=== PATIENT | male | born 1935 | race Caucasian/White ===

== ENCOUNTER → 2016-10-24 | Outpatient (CLI) | payer MEDICARE, OTHER ==
[~2016-10-24] MED LIST: /OCUVTA PO; ASPI81TA4 PO; CHON150C PO; CORE25TA PO; DIGO25TA PO; FIBEPOW11 PO; FISH1000 PO; GLUC15002 PO; LIPI10TA PO; LISI5TAB PO; LOPR50TA PO; MULTTAB4 PO; NORC5TAB PO; OMEP20CA3 PO; PRAD150C PO
[2016-10-24 14:59] LABS: INR 2.39
== END ==
LOC: M WUC 13:45
PROVIDERS: ATTEND Physician Assistant
DX: I48.0 Paroxysmal atrial fibrillation (principal)

== ENCOUNTER → 2016-11-24 | Outpatient (CLI) | payer MEDICARE, OTHER ==
[2016-11-24 17:41] LABS: INR 2.35
== END ==
LOC: M WUC 13:29
PROVIDERS: ATTEND Physician Assistant
DX: Z51.81 Encounter for therapeutic drug level monitoring (principal); Z79.01 Long term (current) use of anticoagulants; I48.0 Paroxysmal atrial fibrillation

== ENCOUNTER → 2016-12-23 | Outpatient (CLI) | payer MEDICARE, OTHER ==
[2016-12-23 16:58] LABS: INR 2.14
== END ==
LOC: M WUC 12:51
PROVIDERS: ATTEND Nurse Practitioner Family
DX: I48.0 Paroxysmal atrial fibrillation (principal)

== ENCOUNTER → 2017-01-26 | Outpatient (CLI) | payer MEDICARE, OTHER ==
[2017-01-26 17:47] LABS: INR 2.45
== END ==
LOC: M WUC 14:54
PROVIDERS: ATTEND Physician Assistant
DX: I48.0 Paroxysmal atrial fibrillation (principal)

== ENCOUNTER → 2017-02-02 | Outpatient (CLI) | payer MEDICARE, OTHER ==
[2017-02-02 10:32] LABS: MEAN CORPUSCULAR HEMOGLOBIN 30.9 pg (27.0-33.0); MEAN CORPUSCULAR HGB CONC 31.8 g/dl (32.0-36.5); MEAN CORPUSCULAR VOLUME 97.1 fl (80.0-96.0); RED CELL DISTRIBUTION WIDTH 13.3 % (11.5-14.5); WHITE BLOOD COUNT 6.9 K/mm3 (4.0-10.0)
[2017-02-02 10:44] LABS: ALBUMIN 3.7 GM/DL (3.2-5.2); ALBUMIN/GLOBULIN RATIO 1.12 (1.00-1.93); BILIRUBIN,TOTAL 0.9 MG/DL (0.2-1.0); CALCIUM LEVEL 9.1 MG/DL (8.8-10.2); CREATININE FOR GFR 1.26 MG/DL (0.70-1.30); GLOMERULAR FILTRATION RATE 58.5 (>35); POTASSIUM SERUM 4.6 MEQ/L (3.5-5.1)
== END ==
LOC: M WUC 08:07
PROVIDERS: ATTEND Internal Medicine Cardiovascular Disease
DX: I48.0 Paroxysmal atrial fibrillation (principal); I11.9 Hypertensive heart disease without heart failure; E78.00 Pure hypercholesterolemia, unspecified

== ENCOUNTER → 2017-02-26 | Outpatient (CLI) | payer MEDICARE, OTHER ==
[2017-02-26 18:08] LABS: INR 2.07
== END ==
LOC: M WUC 14:03
PROVIDERS: ATTEND Nurse Practitioner Family
DX: Z51.81 Encounter for therapeutic drug level monitoring (principal); Z79.01 Long term (current) use of anticoagulants; I48.0 Paroxysmal atrial fibrillation

== ENCOUNTER → 2017-03-30 | Outpatient (CLI) | payer MEDICARE, OTHER ==
[2017-03-30 19:31] LABS: INR 2.39
== END ==
LOC: M WUC 12:58
PROVIDERS: ATTEND Nurse Practitioner Family
DX: I48.0 Paroxysmal atrial fibrillation (principal)

== ENCOUNTER → 2017-04-29 | Outpatient (CLI) | payer MEDICARE, OTHER ==
[2017-04-29 18:29] LABS: INR 2.56
== END ==
LOC: M WUC 13:28
PROVIDERS: ATTEND Nurse Practitioner Family
DX: Z51.81 Encounter for therapeutic drug level monitoring (principal); Z79.01 Long term (current) use of anticoagulants; I48.0 Paroxysmal atrial fibrillation

== ENCOUNTER → 2017-06-01 | Outpatient (CLI) | payer MEDICARE, OTHER ==
[2017-06-01 18:05] LABS: INR 2.04
== END ==
LOC: M WUC 13:15
PROVIDERS: ATTEND Nurse Practitioner Family
DX: Z51.81 Encounter for therapeutic drug level monitoring (principal); Z79.01 Long term (current) use of anticoagulants; I48.0 Paroxysmal atrial fibrillation

== ENCOUNTER → 2017-06-24 | Outpatient (CLI) | payer MEDICARE, OTHER ==
[2017-06-24 16:22] LABS: INR 2.26
== END ==
LOC: M WUC 13:32
PROVIDERS: ATTEND Nurse Practitioner Family
DX: I48.0 Paroxysmal atrial fibrillation (principal)

== ENCOUNTER → 2017-07-23 | Outpatient (CLI) | payer MEDICARE, OTHER ==
[2017-07-23 17:55] LABS: INR 2.48
== END ==
LOC: M WUC 12:36
PROVIDERS: ATTEND Physician Assistant
DX: I48.0 Paroxysmal atrial fibrillation (principal)

== ENCOUNTER → 2017-09-22 | Outpatient (CLI) | payer MEDICARE, OTHER ==
[2017-09-22 17:03] LABS: INR 2.34
== END ==
LOC: M WUC 13:26
PROVIDERS: ATTEND Physician Assistant
DX: I48.0 Paroxysmal atrial fibrillation (principal)

== ENCOUNTER → 2017-10-27 | Outpatient (CLI) | payer MEDICARE, OTHER ==
[2017-10-27 18:17] LABS: INR 2.62; PROTHROMBIN TIME 29.1 SECONDS (12.4-14.5)
== END ==
LOC: M WUC 13:28
DX: I48.0 Paroxysmal atrial fibrillation (principal)
CPT/HCPCS: 85610

== ENCOUNTER → 2017-11-26 | Outpatient (CLI) | payer MEDICARE, OTHER ==
[2017-11-26 18:57] LABS: INR 3.09; PROTHROMBIN TIME 33.3 SECONDS (12.4-14.5)
== END ==
LOC: M WUC 13:20
DX: I48.0 Paroxysmal atrial fibrillation (principal)
CPT/HCPCS: 85610

== ENCOUNTER → 2017-12-14 | Outpatient (CLI) | payer MEDICARE, OTHER ==
[2017-12-14 16:37] LABS: INR 2.45; PROTHROMBIN TIME 27.6 SECONDS (12.4-14.5)
== END ==
LOC: M WUC 13:31
DX: I48.0 Paroxysmal atrial fibrillation (principal)
CPT/HCPCS: 85610

== ENCOUNTER → 2017-12-21 | Outpatient (CLI) | payer MEDICARE, OTHER ==
[2017-12-21 14:22] LABS: HEMATOCRIT 44.4 % (42.0-52.0); MEAN CORPUSCULAR HEMOGLOBIN 31.9 pg (27.0-33.0); MEAN CORPUSCULAR HGB CONC 33.8 g/dl (32.0-36.5); MEAN CORPUSCULAR VOLUME 94.5 fl (80.0-96.0); PLATELET COUNT, AUTOMATED 186 10^3/uL (150-450); RED CELL DISTRIBUTION WIDTH 13.6 % (11.5-14.5); WHITE BLOOD COUNT 6.9 10^3/uL (4.0-10.0)
[2017-12-21 15:20] LABS: CHOLESTEROL LEVEL 118 MG/DL (<200); CHOLESTEROL RISK RATIO 1.843 (<5); HDL CHOLESTEROL 64 MG/DL (>40); LDL CHOLESTEROL 41.2 MG/DL (<100); NON-HDL-C 54 MG/DL; TRIGLYCERIDES LEVEL 64 MG/DL (<150)
== END ==
LOC: M WUC 08:48
DX: I48.0 Paroxysmal atrial fibrillation (principal); I25.10 Atherosclerotic heart disease of native coronary artery without angina pectoris
CPT/HCPCS: 80061

== ENCOUNTER → 2018-01-13 | Outpatient (CLI) | payer MEDICARE, OTHER ==
[2018-01-13 16:42] LABS: INR 2.38; PROTHROMBIN TIME 26.9 SECONDS (12.4-14.5)
== END ==
LOC: M WUC 13:21
DX: I48.0 Paroxysmal atrial fibrillation (principal)
CPT/HCPCS: 85610

== ENCOUNTER → 2018-02-16 | Outpatient (CLI) | payer MEDICARE, OTHER ==
[2018-02-16 17:11] LABS: INR 3.29
== END ==
LOC: M WUC 13:21
DX: I48.0 Paroxysmal atrial fibrillation (principal)
CPT/HCPCS: 85610

== ENCOUNTER → 2018-03-17 | Outpatient (REF) | payer MEDICARE, OTHER ==
[2018-03-18 10:34] LABS: INR 2.54; PROTHROMBIN TIME 28.4 SECONDS (12.4-14.5)
== END ==
LOC: M LAB REF 10:09
DX: I48.0 Paroxysmal atrial fibrillation (principal)
CPT/HCPCS: 85610

== ENCOUNTER → 2018-04-14 | Outpatient (CLI) | payer MEDICARE, OTHER ==
[2018-04-14 16:23] LABS: BASO % 0.6 % (0.0-1.0); EOS # 0.2 10^3/uL (0.0-0.50); EOS % 2.8 % (0.0-3.0); IMMATURE GRANULOCYTE % 0.3 % (0-3.0); LYMPH # 2.1 10^3/uL (1.5-4.5); MEAN CORPUSCULAR HEMOGLOBIN 32.2 pg (27.0-33.0); MEAN CORPUSCULAR HGB CONC 34.1 g/dl (32.0-36.5); MEAN CORPUSCULAR VOLUME 94.4 fl (80.0-96.0); MONO # 0.9 10^3/uL (0.0-0.8); MONO % 13.9 % (0.0-5.0); NEUTROPHILS # 3.2 10^3/uL (1.8-7.7); NEUTROPHILS % 49.4 % (36.0-66.0); PLATELET COUNT, AUTOMATED 190 10^3/uL (150-450); RED BLOOD COUNT 4.66 10^6/uL (4.30-6.10); RED CELL DISTRIBUTION WIDTH 13.4 % (11.5-14.5); WHITE BLOOD COUNT 6.5 10^3/uL (4.0-10.0)
[2018-04-14 16:32] LABS: ALBUMIN 3.6 GM/DL (3.2-5.2); ALKALINE PHOSPHATASE 96 U/L (45-117); ALT/SGPT 83 U/L (12-78); ANION GAP 7 MEQ/L (8-16); AST/SGOT 70 U/L (7-37); BILIRUBIN,TOTAL 1.1 MG/DL (0.2-1.0); BLOOD UREA NITROGEN 22 MG/DL (7-18); CALCIUM LEVEL 8.7 MG/DL (8.8-10.2); CARBON DIOXIDE LEVEL 30 MEQ/L (21-32); CHLORIDE LEVEL 106 MEQ/L (98-107); CREATININE FOR GFR 1.15 MG/DL (0.70-1.30); GLOMERULAR FILTRATION RATE > 60.0 (>35); GLUCOSE, FASTING 87 MG/DL (70-100); POTASSIUM SERUM 4.5 MEQ/L (3.5-5.1); SODIUM LEVEL 143 MEQ/L (136-145); TOTAL PROTEIN 7.2 GM/DL (6.4-8.2)
== END ==
LOC: M WUC 13:50
DX: R19.7 Diarrhea, unspecified (principal); I48.0 Paroxysmal atrial fibrillation; Z79.899 Other long term (current) drug therapy
CPT/HCPCS: 80053

== ENCOUNTER → 2018-04-14 | Outpatient (CLI) | payer MEDICARE, OTHER ==
[2018-04-14 16:34] LABS: INR 2.85; PROTHROMBIN TIME 30.6 SECONDS (12.1-14.4)
== END ==
LOC: M WUC 13:32
DX: I48.0 Paroxysmal atrial fibrillation (principal)

== ENCOUNTER → 2018-04-15 | Outpatient (REF) | payer MEDICARE, OTHER | LOC: M LAB REF 12:25 | DX: R19.7 Diarrhea, unspecified (principal) | CPT/HCPCS: 87507 ==

== ENCOUNTER → 2018-05-13 | Outpatient (CLI) | payer MEDICARE, OTHER ==
[2018-05-13 16:40] LABS: INR 3.16; PROTHROMBIN TIME 33.2 SECONDS (12.1-14.4)
== END ==
LOC: M WUC 13:33
DX: I48.0 Paroxysmal atrial fibrillation (principal); Z79.01 Long term (current) use of anticoagulants
CPT/HCPCS: 85610

== ENCOUNTER → 2018-05-27 | Outpatient (CLI) | payer MEDICARE, OTHER ==
[2018-05-27 17:21] LABS: INR 2.35; PROTHROMBIN TIME 26.2 SECONDS (12.1-14.4)
== END ==
LOC: M WUC 13:26
DX: Z51.81 Encounter for therapeutic drug level monitoring (principal); Z79.01 Long term (current) use of anticoagulants; I48.0 Paroxysmal atrial fibrillation
CPT/HCPCS: 85610

== ENCOUNTER → 2018-06-02 | Outpatient (REF) | payer MEDICARE, OTHER ==
[2018-06-02 17:09] LABS: BASO % 0.5 % (0.0-1.0); EOS # 0.2 10^3/uL (0.0-0.50); EOS % 3.1 % (0.0-3.0); HEMATOCRIT 45.6 % (42.0-52.0); IMMATURE GRANULOCYTE % 0.3 % (0-3.0); LYMPH # 2.2 10^3/uL (1.5-4.5); LYMPH % 29.4 % (24.0-44.0); MEAN CORPUSCULAR HEMOGLOBIN 31.8 pg (27.0-33.0); MEAN CORPUSCULAR HGB CONC 32.9 g/dl (32.0-36.5); MEAN CORPUSCULAR VOLUME 96.8 fl (80.0-96.0); MONO # 1.2 10^3/uL (0.0-0.8); MONO % 15.4 % (0.0-5.0); NEUTROPHILS # 3.8 10^3/uL (1.8-7.7); NEUTROPHILS % 51.3 % (36.0-66.0); PLATELET COUNT, AUTOMATED 182 10^3/uL (150-450); RED BLOOD COUNT 4.71 10^6/uL (4.30-6.10); RED CELL DISTRIBUTION WIDTH 13.9 % (11.5-14.5); WHITE BLOOD COUNT 7.5 10^3/uL (4.0-10.0)
[2018-06-02 17:38] LABS: ALBUMIN 3.6 GM/DL (3.2-5.2); ALKALINE PHOSPHATASE 89 U/L (45-117); ALT/SGPT 66 U/L (12-78); ANION GAP 6 MEQ/L (8-16); AST/SGOT 62 U/L (7-37); BILIRUBIN,TOTAL 0.9 MG/DL (0.2-1.0); BLOOD UREA NITROGEN 21 MG/DL (7-18); CALCIUM LEVEL 9.1 MG/DL (8.8-10.2); CARBON DIOXIDE LEVEL 33 MEQ/L (21-32); CHLORIDE LEVEL 104 MEQ/L (98-107); CREATININE FOR GFR 1.17 MG/DL (0.70-1.30); GLOMERULAR FILTRATION RATE > 60.0 (>35); GLUCOSE, FASTING 86 MG/DL (70-100); POTASSIUM SERUM 4.4 MEQ/L (3.5-5.1); SODIUM LEVEL 143 MEQ/L (136-145); TOTAL PROTEIN 7.2 GM/DL (6.4-8.2)
== END ==
LOC: M SFHCCLAY 11:50
DX: K52.9 Noninfective gastroenteritis and colitis, unspecified (principal); K76.89 Other specified diseases of liver
CPT/HCPCS: 80053

== ENCOUNTER → 2018-06-28 | Outpatient (CLI) | payer MEDICARE, OTHER ==
[2018-06-28 17:37] LABS: PROTHROMBIN TIME 28.4 SECONDS (12.1-14.4)
== END ==
LOC: M WUC 13:50
DX: I48.0 Paroxysmal atrial fibrillation (principal)
CPT/HCPCS: 85610

== ENCOUNTER → 2018-07-27 | Outpatient (CLI) | payer MEDICARE, OTHER ==
[2018-07-27 17:29] LABS: INR 3.45; PROTHROMBIN TIME 35.5 SECONDS (12.1-14.4)
== END ==
LOC: M WUC 14:00
DX: Z51.81 Encounter for therapeutic drug level monitoring (principal); Z79.01 Long term (current) use of anticoagulants; I48.0 Paroxysmal atrial fibrillation
CPT/HCPCS: 85610

== ENCOUNTER → 2018-08-11 | Outpatient (CLI) | payer MEDICARE, OTHER ==
[2018-08-11 18:18] LABS: INR 3.85; PROTHROMBIN TIME 38.8 SECONDS (12.1-14.4)
== END ==
LOC: M WUC 13:28
DX: I48.0 Paroxysmal atrial fibrillation (principal); Z79.01 Long term (current) use of anticoagulants
CPT/HCPCS: 85610

== ENCOUNTER → 2018-08-16 | Outpatient (CLI) | payer MEDICARE, OTHER ==
[2018-08-16 16:41] LABS: INR 2.85; PROTHROMBIN TIME 30.5 SECONDS (12.1-14.4)
== END ==
LOC: M WUC 11:33
DX: I48.0 Paroxysmal atrial fibrillation (principal)
CPT/HCPCS: 85610

== ENCOUNTER → 2018-08-23 | Outpatient (CLI) | payer MEDICARE, OTHER ==
[2018-08-23 19:14] LABS: INR 2.39; PROTHROMBIN TIME 26.6 SECONDS (12.1-14.4)
== END ==
LOC: M WUC 13:00
DX: I48.0 Paroxysmal atrial fibrillation (principal); Z51.81 Encounter for therapeutic drug level monitoring; Z79.01 Long term (current) use of anticoagulants
CPT/HCPCS: 85610

== ENCOUNTER → 2018-09-21 | Outpatient (CLI) | payer MEDICARE, OTHER ==
[2018-09-21 17:29] LABS: INR 1.51; PROTHROMBIN TIME 18.4 SECONDS (12.1-14.4)
== END ==
LOC: M WUC 13:17
DX: I48.0 Paroxysmal atrial fibrillation (principal)
CPT/HCPCS: 85610

== ENCOUNTER → 2018-09-29 | Outpatient (CLI) | payer MEDICARE, OTHER ==
[2018-09-29 17:29] LABS: INR 1.29; PROTHROMBIN TIME 16.3 SECONDS (12.1-14.4)
== END ==
LOC: M WUC 13:27
DX: I48.0 Paroxysmal atrial fibrillation (principal)
CPT/HCPCS: 85610

== ENCOUNTER → 2018-10-07 | Outpatient (CLI) | payer MEDICARE, OTHER ==
[2018-10-07 16:53] LABS: INR 1.79; PROTHROMBIN TIME 21.1 SECONDS (12.1-14.4)
== END ==
LOC: M WUC 13:17
PROVIDERS: ATTEND Physician Assistant
DX: I48.0 Paroxysmal atrial fibrillation (principal); Z79.01 Long term (current) use of anticoagulants

== ENCOUNTER → 2018-10-28 | Outpatient (CLI) | payer MEDICARE, OTHER ==
[2018-10-28 16:31] LABS: INR 2.08; PROTHROMBIN TIME 23.8 SECONDS (12.1-14.4)
== END ==
LOC: M WUC 13:25
PROVIDERS: ATTEND Physician Assistant
DX: I48.0 Paroxysmal atrial fibrillation (principal)

== ENCOUNTER → 2018-11-29 | Outpatient (CLI) | payer MEDICARE, OTHER ==
[2018-11-29 18:19] LABS: INR 3.4; PROTHROMBIN TIME 35.1 SECONDS (12.1-14.4)
== END ==
LOC: M WUC 13:31
PROVIDERS: ATTEND Physician Assistant
DX: I48.0 Paroxysmal atrial fibrillation (principal)

== ENCOUNTER → 2018-12-14 | Outpatient (CLI) | payer MEDICARE, OTHER ==
[2018-12-14 17:12] LABS: INR 2.61; PROTHROMBIN TIME 28.5 SECONDS (12.1-14.4)
== END ==
LOC: M WUC 13:27
PROVIDERS: ATTEND Physician Assistant
DX: I48.0 Paroxysmal atrial fibrillation (principal)

== ENCOUNTER → 2019-01-12 | Outpatient (CLI) | payer MEDICARE, OTHER ==
[2019-01-12 16:45] LABS: INR 2.75; PROTHROMBIN TIME 29.7 SECONDS (12.1-14.4)
== END ==
LOC: M WUC 11:23
PROVIDERS: ATTEND Physician Assistant
DX: I48.0 Paroxysmal atrial fibrillation (principal)

== ENCOUNTER → 2019-01-18 | Outpatient (CLI) | payer MEDICARE, BC, OTHER ==
[2019-01-18 17:26] LABS: CLOSTRIDIUM DIFFICILE PCR NEGATIVE (NEGATIVE)
[2019-01-18 17:31] LABS: FREE T4 1.19 NG/DL (0.76-1.46); THYROID STIMULATING HORMONE 2.6 uIU/ML (0.358-3.740)
== END ==
LOC: M WUC 12:24
PROVIDERS: ATTEND Internal Medicine Gastroenterology
DX: R19.4 Change in bowel habit (principal); I48.0 Paroxysmal atrial fibrillation; Z51.81 Encounter for therapeutic drug level monitoring; Z79.01 Long term (current) use of anticoagulants

== ENCOUNTER → 2019-01-18 | Outpatient (CLI) | payer MEDICARE, BC, OTHER ==
[2019-01-18 17:37] LABS: INR 2.28; PROTHROMBIN TIME 25.6 SECONDS (12.1-14.4)
== END ==
LOC: M WUC 12:29
PROVIDERS: ATTEND Physician Assistant
DX: I48.0 Paroxysmal atrial fibrillation (principal); Z51.81 Encounter for therapeutic drug level monitoring; Z79.01 Long term (current) use of anticoagulants

== ENCOUNTER 2019-02-11 08:22 | Day surgery (SDC) | payer MEDICARE, BC, OTHER ==
[~2019-02-11] VITALS: Ht 182.9 cm; Wt 77.3 kg
[~2019-02-11 08:22] MED LIST changes: -/OCUVTA PO; +ASPI81TA85 PO; +ATOR1TAB19 PO; +CARV6.25 PO; +CILO50TA PO; +COLC1TAB14 PO; +DICY1CAP8 PO; +NS 1,000 ML IV ONE; +PRESCAP PO; +PROS2TAB2 PO; +WARF-23 PO
--- NOTE | 2019-02-11 10:33 | ROOR ---
Patient Name: Octavio King Procedure Date: 02/11/2019 9:55 AM Date of : 1935 Age: 83 Room: [facility] Gender: Male Note Status: Finalized Procedure: Colonoscopy Indications: Change in bowel habits, Diarrhea Providers: Leo CARR MD Referring MD: Jigar Loja MD ([place]) Requesting Provider: Medicines: Monitored Anesthesia Care Complications: No immediate complications. Procedure: Pre-Anesthesia Assessment: - The heart rate, respiratory rate, oxygen saturations, blood pressure, adequacy of pulmonary ventilation, and response to care were monitored throughout the procedure. The Colonoscope was introduced through the anus and advanced to 10 cm into the ileum. The colonoscopy was performed without difficulty. The patient tolerated the procedure well. The quality of the bowel preparation was good. Findings: The perianal and digital rectal examinations were normal. Three flat polyps were found in the hepatic flexure and ascending colon. The polyps were 6 to 8 mm in size. These polyps were removed with a cold snare. Resection and retrieval were complete. To prevent bleeding after the polypectomy, four hemostatic clips were successfully placed. There was no bleeding at the end of the procedure. Multiple small and large-mouthed diverticula were found in the sigmoid colon. Internal hemorrhoids were found during retroflexion. The hemorrhoids were medium-sized. The exam was otherwise without abnormality on direct and retroflexion views. Biopsies for histology were taken with a cold forceps for evaluation of microscopic colitis. The terminal ileum appeared normal. Impression: - Three 6 to 8 mm polyps at the hepatic flexure and in the ascending colon, removed with a cold snare. Resected and retrieved. Clips were placed. - Diverticulosis in the sigmoid colon. - Internal hemorrhoids. - The examination was otherwise normal on direct and retroflexion views. - The examined portion of the ileum was normal. - Biopsies were taken with a cold forceps for evaluation of microscopic colitis. Recommendation: - Resume Coumadin (warfarin) at prior dose tomorrow. - Await pathology results. - Telephone endoscopist for pathology results in 2 weeks. - If the pathology report reveals adenomatous tissue, then repeat the colonoscopy for surveillance in 3 years. Leo Carr MD Leo CARR MD 02/11/2019 10:32:46 AM Electronically signed by Leo CARR MD Number of Addenda: 0 Note Initiated On: 02/11/2019 9:55 AM Estimated Blood Loss: Estimated blood loss: none.
[2019-02-11] MEDS ORDERED: LIDOCAINE 2% INJ 100 MG/5 ML SDV (FOR ANES.) As Ordered ONE (10:43)
[2019-02-11] MEDS ORDERED: PROPOFOL 500 MG/50 ML VIAL As Ordered ONE (10:43)
[2019-02-11 10:50] VITALS: BP 121/71
== END 2019-02-11 10:58 | disposition home or self-care (01) ==
LOC: M OPP 08:22
PROVIDERS: ATTEND Internal Medicine Gastroenterology
DX: D12.2 Benign neoplasm of ascending colon (principal); D12.3 Benign neoplasm of transverse colon; K57.30 Diverticulosis of large intestine without perforation or abscess without bleeding; K64.8 Other hemorrhoids; R19.4 Change in bowel habit; R19.7 Diarrhea, unspecified

== ENCOUNTER → 2019-02-14 | Outpatient (CLI) | payer MEDICARE, BC, OTHER ==
[~2019-02-14] MED LIST changes: -NS 1,000 ML IV ONE
[2019-02-14 17:14] LABS: INR 1.44; PROTHROMBIN TIME 17.8 SECONDS (12.1-14.4)
== END ==
LOC: M WUC 13:09
PROVIDERS: ATTEND Physician Assistant
DX: I48.0 Paroxysmal atrial fibrillation (principal); Z79.01 Long term (current) use of anticoagulants

== ENCOUNTER → 2019-03-01 | Outpatient (CLI) | payer MEDICARE, BC, OTHER ==
[2019-03-01 16:58] LABS: INR 3.49; PROTHROMBIN TIME 35.8 SECONDS (12.1-14.4)
== END ==
LOC: M WUC 13:14
PROVIDERS: ATTEND Physician Assistant
DX: I48.0 Paroxysmal atrial fibrillation (principal)

== ENCOUNTER → 2019-03-16 | Outpatient (CLI) | payer MEDICARE, BC, OTHER ==
[2019-03-16 17:57] LABS: INR 2.59; PROTHROMBIN TIME 28.3 SECONDS (12.1-14.4)
== END ==
LOC: M WUC 11:37
PROVIDERS: ATTEND Physician Assistant
DX: I48.0 Paroxysmal atrial fibrillation (principal)

== ENCOUNTER → 2019-04-14 | Outpatient (CLI) | payer MEDICARE, BC, OTHER ==
[2019-04-14 17:00] LABS: INR 2.87
== END ==
LOC: M WUC 13:17
PROVIDERS: ATTEND Physician Assistant
DX: I48.0 Paroxysmal atrial fibrillation (principal)

== ENCOUNTER → 2019-05-02 | Outpatient (REF) | payer MEDICARE, OTHER ==
[~2019-05-02] MED LIST changes: +OMEP20CA4 PO
== END ==
LOC: M SFHCCLAY 13:47
PROVIDERS: ATTEND Family Medicine
DX: N30.00 Acute cystitis without hematuria (principal)

== ENCOUNTER → 2019-05-02 | Outpatient (CLI) | payer MEDICARE, BC, OTHER ==
--- NOTE | 2019-05-02 12:25 | REP ---
Lumbar spine three views AP and lateral projections: Comparison is 10/14/2010. There is scoliosis convex left in the upper lumbar area. This has slightly increased. There is advanced degenerative disc disease at every lumbar level. This is unchanged. Vertebral body heights and alignment are unremarkable and unchanged. There is a left iliac artery vascular Endograft. This is unchanged. There are surgical clips along the left lateral margin of the aorta. These are unchanged. I suspect an abdominal aortic aneurysm. Recommend follow-up abdominal aortic ultrasound for further evaluation. There has been interim left hip arthroplasty. Suspect there is a right hip arthroplasty, also almost entirely excluded at the film margin, unchanged. Electronically Signed by Vini Ramírez MD 05/02/2019 12:17 P
== END ==
LOC: M CLY 11:24
PROVIDERS: ATTEND Family Medicine
DX: M51.36 Other intervertebral disc degeneration, lumbar region (principal); M54.5 Low back pain

== ENCOUNTER → 2019-05-16 | Outpatient (CLI) | payer MEDICARE, OTHER ==
[2019-05-16 15:56] LABS: INR 3.67; PROTHROMBIN TIME 36.5 SECONDS (11.8-14.0)
== END ==
LOC: M WUC 13:51
PROVIDERS: ATTEND Physician Assistant
DX: I48.0 Paroxysmal atrial fibrillation (principal)

== ENCOUNTER → 2019-05-26 | Outpatient (REF) | payer MEDICARE, OTHER | LOC: M SFHCPLAZ 09:54 | PROVIDERS: ATTEND Dermatology | DX: C44.629 Squamous cell carcinoma of skin of left upper limb, including shoulder (principal) ==

== ENCOUNTER → 2019-05-30 | Outpatient (REF) | payer MEDICARE, OTHER ==
[2019-05-30 17:40] LABS: INR 3.81; PROTHROMBIN TIME 37.6 SECONDS (11.8-14.0)
== END ==
LOC: M LAB REF 16:24
PROVIDERS: ATTEND Physician Assistant
DX: I48.0 Paroxysmal atrial fibrillation (principal)

== ENCOUNTER → 2019-06-15 | Outpatient (REF) | payer MEDICARE, OTHER ==
[2019-06-15 11:58] LABS: INR 1.88; PROTHROMBIN TIME 21.4 SECONDS (11.8-14.0)
== END ==
LOC: M LABDRAWC 11:28
PROVIDERS: ATTEND Physician Assistant
DX: I48.0 Paroxysmal atrial fibrillation (principal)

== ENCOUNTER → 2019-06-16 | Outpatient (REF) | payer MEDICARE, BC, OTHER ==
[~2019-06-16] MED LIST changes: +OMEP1CAP73 PO; -OMEP20CA4 PO
== END ==
LOC: M SFHCPLAZ 18:44
PROVIDERS: ATTEND Dermatology
DX: C44.629 Squamous cell carcinoma of skin of left upper limb, including shoulder (principal); L57.0 Actinic keratosis

== ENCOUNTER → 2019-06-30 | Outpatient (REF) | payer MEDICARE, OTHER ==
[~2019-06-30] MED LIST changes: -OMEP1CAP73 PO; +OMEP20CA4 PO
[2019-06-30 18:47] LABS: INR 1.61; PROTHROMBIN TIME 18.9 SECONDS (11.8-14.0)
== END ==
LOC: M LABDRAWC 16:46
PROVIDERS: ATTEND Physician Assistant
DX: I48.0 Paroxysmal atrial fibrillation (principal)

== ENCOUNTER → 2019-07-28 | Outpatient (REF) | payer MEDICARE, OTHER ==
[2019-07-28 12:31] LABS: INR 2.01; PROTHROMBIN TIME 22.5 SECONDS (11.8-14.0)
== END ==
LOC: M LABDRAWC 11:35
PROVIDERS: ATTEND Physician Assistant
DX: I48.0 Paroxysmal atrial fibrillation (principal)

== ENCOUNTER → 2019-08-09 | Outpatient (CLI) | payer MEDICARE, BC ==
--- NOTE | 2019-08-09 11:20 | REP ---
Two-view chest: 08/09/2019. Indication: Arrhythmia. Comparison: 10/08/2016. Findings: The lungs are clear. Left-sided dual lead pacer is noted with the leads intact. There are no pleural effusions. There is no pneumothorax. Postoperative sequelae are present status post median sternotomy. The cardiac silhouette is not enlarged. Impression: Clear lungs. Electronically Signed by David Yung DO 08/09/2019 11:11 A
[2019-08-09 16:54] LABS: HEMATOCRIT 43.2 % (42.0-52.0); HEMOGLOBIN 14.6 g/dl (13.5-17.5); MEAN CORPUSCULAR HEMOGLOBIN 33.2 pg (27.0-33.0); MEAN CORPUSCULAR HGB CONC 33.8 g/dl (32.0-36.5); MEAN CORPUSCULAR VOLUME 98.2 fl (80.0-96.0); PLATELET COUNT, AUTOMATED 177 10^3/uL (150-450); WHITE BLOOD COUNT 7.2 10^3/uL (4.0-10.0)
[2019-08-09 17:11] LABS: ALBUMIN 3.4 GM/DL (3.2-5.2); CALCIUM LEVEL 9.2 MG/DL (8.8-10.2); CREATININE FOR GFR 1.29 MG/DL (0.70-1.30); GLOMERULAR FILTRATION RATE 56.6 (>35); POTASSIUM SERUM 4.3 MEQ/L (3.5-5.1); THYROID STIMULATING HORMONE 4.04 uIU/ML (0.358-3.740); TOTAL PROTEIN 6.6 GM/DL (6.4-8.2)
== END ==
LOC: M CLY 10:28
PROVIDERS: ATTEND Internal Medicine Cardiovascular Disease
DX: I48.0 Paroxysmal atrial fibrillation (principal); I11.9 Hypertensive heart disease without heart failure

== ENCOUNTER → 2019-09-02 | Outpatient (CLI) | payer MEDICARE, BC, OTHER ==
[~2019-09-02] MED LIST changes: +OMEP-172 PO; -OMEP20CA4 PO
--- NOTE | 2019-09-02 15:17 | REP ---
REASON: Chest wall injury. COMPARISON: Chest is 08/09/2019. The accompanying frontal view of the chest is unchanged from the prior exam. Not all of the left inferior ribs were included on all of the oblique views. This limits the exam. There is no acute fracture or destructive osseous lesion. Electronically Signed by Jose A Arriaga DO 09/02/2019 03:29 P
== END ==
LOC: M CLY 13:43
PROVIDERS: ATTEND Family Medicine
DX: S29.9XXA Unspecified injury of thorax, initial encounter (principal); W00.0XXA Fall on same level due to ice and snow, initial encounter; Y92.9 Unspecified place or not applicable
CPT/HCPCS: 71101; G0463

== ENCOUNTER → 2019-09-30 | Outpatient (REF) | payer MEDICARE, OTHER ==
[~2019-09-30] MED LIST changes: -OMEP-172 PO; +OMEP1CAP73 PO
[2019-09-30 16:26] LABS: BASO % 0.6 % (0.0-1.0); EOS # 0.1 10^3/uL (0.0-0.5); EOS % 1.1 % (0.0-3.0); HEMATOCRIT 44.7 % (42.0-52.0); HEMOGLOBIN 14.7 g/dl (13.5-17.5); LYMPH # 1.4 10^3/uL (1.5-5.0); LYMPH % 19.6 % (24.0-44.0); MEAN CORPUSCULAR HEMOGLOBIN 32.5 pg (27.0-33.0); MEAN CORPUSCULAR HGB CONC 32.9 g/dl (32.0-36.5); MEAN CORPUSCULAR VOLUME 98.7 fl (80.0-96.0); MONO # 1.1 10^3/uL (0.0-0.8); MONO % 15.3 % (0.0-5.0); NEUTROPHILS # 4.4 10^3/uL (1.5-8.5); NEUTROPHILS % 62.3 % (36.0-66.0); PLATELET COUNT, AUTOMATED 205 10^3/uL (150-450); RED BLOOD COUNT 4.53 10^6/uL (4.30-6.10)
[2019-09-30 16:28] LABS: APPEARANCE, URINE HAZY (CLEAR); BACTERIA, URINE AUTO NEGATIVE (NEGATIVE); BILIRUBIN, URINE AUTO NEGATIVE (NEGATIVE); BLOOD, URINE BLOOD NEGATIVE (NEGATIVE); COLOR, URINE YELLOW (YELLOW); GLUCOSE, URINE (UA) AUTO NEGATIVE (NEGATIVE); KETONE, URINE AUTO NEGATIVE (NEGATIVE); LEUKOCYTE ESTERASE, URINE AUTO NEGATIVE (NEGATIVE); NITRITE, URINE AUTO NEGATIVE (NEGATIVE); PROTEIN, URINE AUTO 1+ mg/dL (NEGATIVE); RBC, URINE AUTO 1 /HPF (0-3); SPECIFIC GRAVITY URINE AUTO 1.023 (1.002-1.035); SQUAMOUS EPITHELIAL CELL UR AU 0 /HPF (0-6); UROBILINOGEN, URINE AUTO 0.2 mg/dL (0.0-2.0); WBC, URINE AUTO 2 /HPF (0-3)
[2019-09-30 16:42] LABS: ALBUMIN 3.3 GM/DL (3.2-5.2); CALCIUM LEVEL 8.5 MG/DL (8.8-10.2); CREATININE FOR GFR 1.72 MG/DL (0.70-1.30); FOLATE 10.7 NG/ML (>5.4); FREE T4 1.15 NG/DL (0.76-1.46); GLOMERULAR FILTRATION RATE 40.6 (>35); POTASSIUM SERUM 3.8 MEQ/L (3.5-5.1); THYROID STIMULATING HORMONE 6.43 uIU/ML (0.358-3.740); TOTAL PROTEIN 6.9 GM/DL (6.4-8.2)
== END ==
LOC: M SFHCCLAY 09:33
PROVIDERS: ATTEND Family Medicine
DX: R29.898 Other symptoms and signs involving the musculoskeletal system (principal); W19.XXXD Unspecified fall, subsequent encounter; Z79.899 Other long term (current) drug therapy
CPT/HCPCS: 36415; 80053; 81001; 82550; 82607; 82746; 84439; 84443; 85025; G0463

== ENCOUNTER → 2019-10-06 | Outpatient (REF) | payer MEDICARE, OTHER ==
[~2019-10-06] MED LIST changes: +OMEP-172 PO; -OMEP1CAP73 PO
[2019-10-06 11:45] LABS: ALBUMIN 3.5 GM/DL (3.2-5.2); BILIRUBIN,TOTAL 1.1 MG/DL (0.2-1.0); CREATININE FOR GFR 1.5 MG/DL (0.70-1.30); GLOMERULAR FILTRATION RATE 47.5 (>35); TOTAL PROTEIN 6.9 GM/DL (6.4-8.2)
== END ==
LOC: M SFHCCLAY 08:13
PROVIDERS: ATTEND Family Medicine
DX: N28.9 Disorder of kidney and ureter, unspecified (principal)

== ENCOUNTER → 2019-10-07 | Outpatient (CLI) | payer MEDICARE, BC, OTHER ==
--- NOTE | 2019-10-07 14:26 | REP ---
Whole body radionuclide bone scan: History: Pain in the left hip, thigh and low back. Rule out metastasis. Technique: 21.0 mCi technetium 99m MDP is injected and standard bone scan images are acquired. Scintigraphic findings: There are photopenic areas associated with bilateral knee and bilateral hip arthroplasties. There is arthritic uptake in the wrists bilaterally. There is mild degenerative uptake in the lumbar spine along with a levoconvex curvature. There are three linearly opposed foci of increased uptake at the anterior costochondral junction of the left 4th, 5th, and 6th ribs consistent with fractures. Similarly, on the posterior view there are four linearly opposed foci of increased uptake at the posterior costovertebral junctions of the left rib cage involving rib numbers 6, 7, 8, and 9. These are compatible with fractures as well. There is uptake in bilateral kidneys and in the urinary bladder. There is no evidence to suggest skeletal metastatic disease. Impression: Findings consistent with multiple recent rib fractures on the left as above. Some arthritic and degenerative uptake. No evidence to suggest skeletal metastatic disease. Electronically Signed by Tor Lamb MD 10/07/2019 03:16 P
== END ==
LOC: M RAD 08:40
PROVIDERS: ATTEND Physical Medicine & Rehabilitation
DX: M79.652 Pain in left thigh (principal); M25.552 Pain in left hip; M54.5 Low back pain
CPT/HCPCS: 78306; A9503

== ENCOUNTER → 2019-11-16 | Outpatient (REF) | payer MEDICARE, OTHER ==
[~2019-11-16] MED LIST changes: -OMEP-172 PO; +OMEP1CAP73 PO
[2019-11-16 17:19] LABS: PLATELET COUNT, AUTOMATED 196 10^3/uL (150-450)
[2019-11-16 17:29] LABS: INR 1.41
[2019-11-16 17:30] LABS: PARTIAL THROMBOPLASTIN TIME 31.8 SECONDS (25.0-38.4)
[2019-11-16 17:40] LABS: ERYTHROCYTE SEDIMENTATION RATE 5 mm/hr (0-20)
== END ==
LOC: M LABDRAWC 17:10
PROVIDERS: ATTEND Physical Medicine & Rehabilitation
DX: Z01.818 Encounter for other preprocedural examination (principal); Z79.82 Long term (current) use of aspirin; Z79.899 Other long term (current) drug therapy

== ENCOUNTER → 2019-11-29 | Outpatient (REF) | payer MEDICARE, OTHER ==
[2019-11-29 17:06] LABS: HEMATOCRIT 45.8 % (42.0-52.0); HEMOGLOBIN 14.9 g/dl (13.5-17.5); MEAN CORPUSCULAR HGB CONC 32.5 g/dl (32.0-36.5); MEAN CORPUSCULAR VOLUME 101.6 fl (80.0-96.0); PLATELET COUNT, AUTOMATED 213 10^3/uL (150-450); RED BLOOD COUNT 4.51 10^6/uL (4.30-6.10); WHITE BLOOD COUNT 8.1 10^3/uL (4.0-10.0)
[2019-11-29 18:06] LABS: THYROID STIMULATING HORMONE 9.11 uIU/ML (0.358-3.740)
== END ==
LOC: M LABDRAWC 16:09
PROVIDERS: ATTEND Internal Medicine Cardiovascular Disease
DX: I48.0 Paroxysmal atrial fibrillation (principal); E03.9 Hypothyroidism, unspecified; I11.9 Hypertensive heart disease without heart failure; I50.9 Heart failure, unspecified

== ENCOUNTER → 2020-02-07 | Outpatient (REF) | payer MEDICARE, OTHER ==
[2020-02-07 16:43] LABS: ALBUMIN 3.6 GM/DL (3.2-5.2); BILIRUBIN,TOTAL 1.1 MG/DL (0.2-1.0); CALCIUM LEVEL 9.2 MG/DL (8.8-10.2); CREATININE FOR GFR 1.47 MG/DL (0.70-1.30); GLOMERULAR FILTRATION RATE 48.6 (>35); POTASSIUM SERUM 4.2 MEQ/L (3.5-5.1); THYROID STIMULATING HORMONE 5.68 uIU/ML (0.358-3.740); TOTAL PROTEIN 7.1 GM/DL (6.4-8.2)
== END ==
LOC: M LABDRAWC 16:04
PROVIDERS: ATTEND Internal Medicine Cardiovascular Disease
DX: E03.2 Hypothyroidism due to medicaments and other exogenous substances (principal); I25.10 Atherosclerotic heart disease of native coronary artery without angina pectoris

== ENCOUNTER → 2020-03-06 | Outpatient (REF) | payer MEDICARE, OTHER | LOC: M LAB REF 17:20 | PROVIDERS: ATTEND Dermatology | DX: C44.729 Squamous cell carcinoma of skin of left lower limb, including hip (principal); D04.4 Carcinoma in situ of skin of scalp and neck; L57.0 Actinic keratosis ==

== ENCOUNTER → 2020-04-17 | Outpatient (REF) | payer MEDICARE, OTHER | LOC: M LAB REF 17:49 | PROVIDERS: ATTEND Dermatology | DX: C44.42 Squamous cell carcinoma of skin of scalp and neck (principal); L57.0 Actinic keratosis; L57.8 Other skin changes due to chronic exposure to nonionizing radiation; L90.5 Scar conditions and fibrosis of skin ==

== ENCOUNTER → 2020-05-22 | Outpatient (REF) | payer MEDICARE, BC, OTHER ==
[~2020-05-22] MED LIST changes: -ASPI81TA85 PO; +ASPI81TA86 PO
== END ==
LOC: M LAB REF 10:43
PROVIDERS: ATTEND Dermatology
DX: C44.42 Squamous cell carcinoma of skin of scalp and neck (principal); L57.0 Actinic keratosis

== ENCOUNTER → 2020-06-12 | Outpatient (REF) | payer MEDICARE, BC, OTHER | LOC: M LAB REF 09:00 | PROVIDERS: ATTEND Dermatology | DX: C44.42 Squamous cell carcinoma of skin of scalp and neck (principal) ==

== ENCOUNTER → 2020-09-20 | Outpatient (REF) | payer MEDICARE, OTHER | LOC: M LAB REF 17:26 | PROVIDERS: ATTEND Dermatology | DX: L57.0 Actinic keratosis (principal); L57.8 Other skin changes due to chronic exposure to nonionizing radiation ==

== ENCOUNTER → 2020-11-19 | Outpatient (CLI) | payer MEDICARE, BC, OTHER ==
--- NOTE | 2020-11-19 08:34 | REPVR ---
PROCEDURE INFORMATION: Exam: CT Head Without Contrast Exam date and time: 11/19/2020 8:19 AM Age: 85 years old Clinical indication: Dizziness TECHNIQUE: Imaging protocol: Computed tomography of the head without contrast. Radiation optimization: All CT scans at this facility use at least one of these dose optimization techniques: automated exposure control; mA and/or kV adjustment per patient size (includes targeted exams where dose is matched to clinical indication); or iterative reconstruction. COMPARISON: None available. FINDINGS: Brain: There is no acute intracranial hemorrhage or mass effect. Moderate diffuse volume loss is within the range of normal for patient age. There are small vessel ischemic changes within the periventricular and subcortical white matter, but the normal man-white matter delineation is maintained. Chronic lacunar infarcts involve the basal ganglia. Cerebral ventricles: Prominence of the ventricular system is commensurate with volume loss. Bones/joints: Unremarkable. No acute fracture. Paranasal sinuses: Visualized sinuses are unremarkable. No fluid levels. Mastoid air cells: There is fluid opacification of right mastoid air cells and right middle ear cavity. Soft tissues: Unremarkable. IMPRESSION: 1. No acute intracranial hemorrhage or edema. Chronic changes. 2. Opacification of the right middle ear cavity and right mastoid air cells, potentially effusion versus otitis/mastoiditis. Electronically signed by: Rosario Mendoza On 11/19/2020 08:34:14 AM
== END ==
LOC: M RAD 08:11
PROVIDERS: ATTEND Family Medicine
DX: R42 Dizziness and giddiness (principal); H74.91 Unspecified disorder of right middle ear and mastoid

== ENCOUNTER → 2021-04-02 | Outpatient (REF) | payer MEDICARE, OTHER ==
[2021-04-02 13:13] LABS: CALCIUM LEVEL 9.4 MG/DL (8.8-10.2); CHOLESTEROL RISK RATIO 1.928 (<5); CREATININE FOR GFR 1.51 MG/DL (0.70-1.30); FREE T4 1.3 NG/DL (0.76-1.46); THYROID STIMULATING HORMONE 2.11 uIU/ML (0.358-3.740)
== END ==
LOC: M SFHCCLAY 07:03
PROVIDERS: ATTEND Family Medicine
DX: Z00.00 Encounter for general adult medical examination without abnormal findings (principal); E03.9 Hypothyroidism, unspecified; I25.10 Atherosclerotic heart disease of native coronary artery without angina pectoris; I11.9 Hypertensive heart disease without heart failure

== ENCOUNTER → 2021-05-01 | Outpatient (REF) | payer MEDICARE, OTHER ==
[2021-05-01 17:12] LABS: BASO % 0.6 % (0.0-1.0); EOS # 0.1 10^3/uL (0.0-0.5); EOS % 2.1 % (0.0-3.0); HEMATOCRIT 43.1 % (42.0-52.0); HEMOGLOBIN 14.5 g/dl (13.5-17.5); LYMPH # 2.2 10^3/uL (1.5-5.0); LYMPH % 34.2 % (24.0-44.0); MEAN CORPUSCULAR HEMOGLOBIN 32.4 pg (27.0-33.0); MEAN CORPUSCULAR HGB CONC 33.6 g/dl (32.0-36.5); MEAN CORPUSCULAR VOLUME 96.4 fl (80.0-96.0); MONO # 0.9 10^3/uL (0.0-0.8); MONO % 14.1 % (2.0-8.0); NEUTROPHILS # 3.1 10^3/uL (1.5-8.5); NEUTROPHILS % 48.8 % (36.0-66.0); PLATELET COUNT, AUTOMATED 173 10^3/uL (150-450); RED BLOOD COUNT 4.47 10^6/uL (4.30-6.10); WHITE BLOOD COUNT 6.3 10^3/uL (4.0-10.0)
[2021-05-04 15:34] LABS: Lyme Disease IgG/IgM Antibodie <0.91 ISR (0.00-0.90); Lyme Disease IgM Ab Quantitati <0.80 index (0.00-0.79)
== END ==
LOC: M SFHCCLAY 13:42
PROVIDERS: ATTEND Family Medicine
DX: R42 Dizziness and giddiness (principal); R53.83 Other fatigue
CPT/HCPCS: 85025; 86617; G0463

== ENCOUNTER → 2021-05-13 | Outpatient (CLI) | payer MEDICARE, BC, OTHER ==
--- NOTE | 2021-05-13 14:25 | REP ---
INDICATION: RT INGUINAL SWELLING ? HERNIA. COMPARISON: None. TECHNIQUE: Inguinal sonography right-side. FINDINGS: Targeted scanning of the right inguinal region shows no abnormal fluid collection, hernia defect, or mass. Patient is status post right inguinal hernia repair. IMPRESSION: No mass or abnormal fluid collection. No evidence of right inguinal hernia. <Electronically signed by Orlando Lamb > 05/13/21 0610
== END ==
LOC: M RAD 11:35
PROVIDERS: ATTEND Family Medicine
DX: R22.9 Localized swelling, mass and lump, unspecified (principal)

== ENCOUNTER → 2021-05-20 | Outpatient (REF) | payer MEDICARE, BC ==
[~2021-05-20] MED LIST changes: +ASPI81TA26 PO; +CEPH500C PO; +ELIQ5TAB PO; +ENTR1TAB PO; +LEVO50TA5 PO; +OXYC1TAB23 PO; +PRED20TA PO
[2021-05-20 17:42] LABS: HEMATOCRIT 41.2 % (42.0-52.0); HEMOGLOBIN 13.7 g/dl (13.5-17.5); MEAN CORPUSCULAR HEMOGLOBIN 32.6 pg (27.0-33.0); MEAN CORPUSCULAR HGB CONC 33.3 g/dl (32.0-36.5); MEAN CORPUSCULAR VOLUME 98.1 fl (80.0-96.0); PLATELET COUNT, AUTOMATED 174 10^3/uL (150-450); WHITE BLOOD COUNT 11.6 10^3/uL (4.0-10.0)
[2021-05-20 18:14] LABS: ALBUMIN 3.4 GM/DL (3.2-5.2); ALT/SGPT 31 U/L (12-78); BILIRUBIN,TOTAL 1.9 MG/DL (0.2-1.0); BLOOD UREA NITROGEN 20 MG/DL (7-18); CALCIUM LEVEL 8.8 MG/DL (8.8-10.2); CARBON DIOXIDE LEVEL 30 MEQ/L (21-32); CHLORIDE LEVEL 97 MEQ/L (98-107); CREATININE FOR GFR 1.18 MG/DL (0.70-1.30); GLOMERULAR FILTRATION RATE > 60.0 (>35); GLUCOSE, FASTING 114 MG/DL (70-100); NT-PRO BNP 2737 PG/ML (<450); POTASSIUM SERUM 4.2 MEQ/L (3.5-5.1); SODIUM LEVEL 134 MEQ/L (136-145); TOTAL PROTEIN 6.6 GM/DL (6.4-8.2)
== END ==
LOC: M LABDRAWC 15:38
PROVIDERS: ATTEND Internal Medicine Cardiovascular Disease
DX: I48.0 Paroxysmal atrial fibrillation (principal); I50.42 Chronic combined systolic (congestive) and diastolic (congestive) heart failure; I25.10 Atherosclerotic heart disease of native coronary artery without angina pectoris; I11.0 Hypertensive heart disease with heart failure

== ENCOUNTER → 2021-05-20 | Outpatient (CLI) | payer MEDICARE, BC ==
--- NOTE | 2021-05-20 14:46 | REP ---
INDICATION: M25.421, SWELLING OF RIGHT ELBOW COMPARISON: None. TECHNIQUE: Four views right elbow. FINDINGS: There is no evidence of acute fracture, dislocation, or intrinsic bone disease.There is chondrocalcinosis. There are ill-defined periarticular soft tissue calcifications, some of which are appear ligamentous and others tendinous. There is mild to moderate joint effusion. Vascular calcifications are seen in the forearm soft tissues. IMPRESSION: No acute fracture or dislocation. Diffuse chondrocalcinosis, with periarticular ligamentous and tendinous calcifications. Mild to moderate joint effusion. <Electronically signed by Vini Contreras > 05/20/21 0479
--- NOTE | 2021-05-20 14:52 | REP ---
INDICATION: R22.31, LOCALIZED SWELLING ON RIGHT HAND COMPARISON: 04/20/2013. TECHNIQUE: Four views right hand. FINDINGS: There is no evidence of acute fracture, dislocation, or intrinsic bone disease.There is severe radiocarpal joint space narrowing with subchondral sclerosis. There is diffuse chondrocalcinosis of the joints of the wrist. Mild diffuse narrowing is noted of intercarpal joints. There is moderate narrowing with subchondral sclerosis and spurring at the joint between the trapezium and base of 1st metacarpal. There is mild narrowing of the 1st metacarpophalangeal joint. There is severe narrowing of the 2nd metacarpophalangeal joint and moderate narrowing of the 3rd metacarpophalangeal joint, with subchondral sclerosis, mild spurring and periarticular calcifications. There is mild diffuse narrowing of interphalangeal joints with mild scattered spurring. IMPRESSION: No fracture or dislocation. Degenerative changes as above. <Electronically signed by Vini Contreras > 05/20/21 [id number]
== END ==
LOC: M CLY 14:10
PROVIDERS: ATTEND Physician Assistant
DX: M19.041 Primary osteoarthritis, right hand (principal); M11.221 Other chondrocalcinosis, right elbow; M25.421 Effusion, right elbow

== ENCOUNTER 2021-05-22 09:08 | Inpatient (IN) | payer MEDICARE, BC, OTHER ==
[~2021-05-22] VITALS: Ht 182.9 cm; Wt 76.7 kg
[~2021-05-22 09:08] MED LIST changes: -ASPI81TA26 PO; -CEPH500C PO; -ELIQ5TAB PO; -ENTR1TAB PO; -LEVO50TA5 PO; -OXYC1TAB23 PO; -PRED20TA PO
[2021-05-22] MEDS ORDERED: PRED20TA PO (09:31)
[2021-05-22] MEDS ORDERED: CEPH500C PO (09:31)
[2021-05-22] MEDS ORDERED: ELIQ5TAB PO (09:31)
[2021-05-22] MEDS ORDERED: LEVO50TA5 PO (09:31)
[2021-05-22 10:08] LABS: BASO % 0.1 % (0.0-1.0); EOS % 0.1 % (0.0-3.0); HEMATOCRIT 33.7 % (42.0-52.0); LYMPH # 0.9 10^3/uL (1.5-5.0); LYMPH % 7.5 % (24.0-44.0); MEAN CORPUSCULAR HEMOGLOBIN 32.8 pg (27.0-33.0); MEAN CORPUSCULAR HGB CONC 33.8 g/dl (32.0-36.5); MEAN CORPUSCULAR VOLUME 96.8 fl (80.0-96.0); MONO % 8.4 % (2.0-8.0); NEUTROPHILS # 10.2 10^3/uL (1.5-8.5); NEUTROPHILS % 83.4 % (36.0-66.0); PLATELET COUNT, AUTOMATED 174 10^3/uL (150-450); RED BLOOD COUNT 3.48 10^6/uL (4.30-6.10); WHITE BLOOD COUNT 12.2 10^3/uL (4.0-10.0)
[2021-05-22 10:11] LABS: HEMOGLOBIN 11.4 g/dl (13.5-17.5)
[2021-05-22] MEDS ORDERED: NS 500 ML IV ONE (10:20)
--- NOTE | 2021-05-22 10:22 | REP ---
INDICATION: CHEST PAIN. COMPARISON: 08/09/2019. TECHNIQUE: Single portable AP view of the chest was performed. FINDINGS: There is no acute infiltrate or pulmonary edema. Lungs are clear. The heart is not significantly enlarged. There is calcification and tortuosity of the thoracic aorta. The mediastinal silhouette is unchanged. Left pacemaker is again noted as well as multiple sternal wires mediastinal clips. The visualized osseous structures are intact. IMPRESSION: No acute pulmonary disease. <Electronically signed by Vini Contreras > 05/22/21 1018
--- NOTE | 2021-05-22 10:29 | REP ---
INDICATION: dizzy post fall. COMPARISON: 11/19/2020. TECHNIQUE: CT brain performed in the axial plane. Coronal reconstruction images are performed. FINDINGS: There is moderate atrophy. There are chronic periventricular small vessel ischemic changes appearing similar to the prior study. There is no midline shift or mass effect. There is no acute intracranial hemorrhage or extra-axial fluid collection. There is a soft tissue hematoma involving the left parietal region, with skin chao noted as well. No skull fracture is seen. There are vascular calcifications in the carotid siphons. Once again there is opacification of the right mastoid air cells, as seen on prior study. IMPRESSION: No acute intracranial hemorrhage or skull fracture. Soft tissue hematoma left parietal calvarium. Stable chronic findings. <Electronically signed by Vini Contreras > 05/22/21 102
[2021-05-22 10:42] LABS: ALBUMIN 2.8 GM/DL (3.2-5.2); ALT/SGPT 31 U/L (12-78); BILIRUBIN,DIRECT 0.4 MG/DL (0.0-0.2); BILIRUBIN,TOTAL 0.9 MG/DL (0.2-1.0); BLOOD UREA NITROGEN 26 MG/DL (7-18); CALCIUM LEVEL 8.2 MG/DL (8.8-10.2); CARBON DIOXIDE LEVEL 29 MEQ/L (21-32); CHLORIDE LEVEL 102 MEQ/L (98-107); CK-MB VALUE MASS 2.4 NG/ML (<3.6); CPK CREATINE PHOSPHOKINASE 124 U/L (39-308); CREATININE FOR GFR 1.22 MG/DL (0.70-1.30); FREE T4 1.19 NG/DL (0.76-1.46); GLOMERULAR FILTRATION RATE > 60.0 (>35); GLUCOSE, FASTING 121 MG/DL (70-100); LIPASE 91 U/L (73-393); MAGNESIUM LEVEL 2.2 MG/DL (1.8-2.4); MB/CK RELATIVE INDEX 1.94 (< OR =4); NT-PRO BNP 1450 PG/ML (<450); POTASSIUM SERUM 3.9 MEQ/L (3.5-5.1); SODIUM LEVEL 136 MEQ/L (136-145); THYROID STIMULATING HORMONE 0.547 uIU/ML (0.358-3.740); TOTAL PROTEIN 5.9 GM/DL (6.4-8.2); TROPONIN I < 0.02 NG/ML (< 0.10)
[2021-05-22 10:51] LABS: INR 1.4; PROTHROMBIN TIME 17.6 SECONDS (12.7-14.5)
[2021-05-22 10:52] LABS: PARTIAL THROMBOPLASTIN TIME 40.9 SECONDS (25.9-37.0)
[2021-05-22 11:04] LABS: RSV AMPLIFICATION NEGATIVE (NEGATIVE)
[2021-05-22] MEDS ORDERED: OXYC1TAB23 PO (11:31)
[2021-05-22] MEDS ORDERED: ASPI81TA26 PO (11:31)
[2021-05-22] MEDS ORDERED: HOME MED LIST COMPLETE! XX SCH (11:35)
[2021-05-22] MEDS ORDERED: PERCOCET 5MG/325MG TAB PO PRN (11:50)
[2021-05-22] MEDS ORDERED: ISOVUE-370 76% 100ML VIAL As Ordered ONE (12:15)
--- NOTE | 2021-05-22 12:22 | HPEPDOC ---
[facility] Medical History & Physical Date of Admission May 22, 2021 Date of Service: May 22, 2021 History and Physical CHIEF COMPLAINT: dizziness/falls HISTORY OF PRESENT ILLNESS: 85-year-old gentleman with one week history of worsening dizziness, weakness, shortness of breath and dyspnea on exertion. Most recently, he sustained a fall secondary to his dizziness. He was seen at [facility] and received chao were left cranial laceration. He returns today with persistent dizziness and weakness. He also notes he was seen by his primary care provider roughly 2 weeks ago with some changes to his medications with no improvement with his symptoms. His falls/dizziness go back to September, however over the past week the dizziness has acutely worsened. His dizziness occurs at any time of day, with no clear modifying or illiciting factors. In the ED he was found to be with intermittent arrhythmias, appearing to be atr ial tachycardia, and atrial fibrillation. This was discussed with cardiology. He is currently denying headaches, changes in vision, abdominal pain, diarrhea, sick contacts or recent travel. PAST MEDICAL HISTORY: #av block/PPM/interrogated Oct 2020 #hypothyroidism #afib? #CAD/CABG #PVD/right fem/pop bypass #GERD SOCIAL HISTORY: Former smoker, 40 pack year history, quit >20 years ago FAMILY HISTORY: Reviewed, non-contributory ALLERGIES: Please see below. REVIEW OF SYSTEMS: Negative except as per HPI HOME MEDICATIONS: Please see below. PHYSICAL EXAMINATION: Vitals: see below General: NAD, lying comfortably in bed, elderly, frail HEENT: NC/AT, EOMI Lungs: CTA B/L Heart: +S1S2, RRR Abd: soft, NT, +BS Ext: no edema Neuro: no gross focal deficits Psych: AAOx3 LABORATORY DATA: See below. MICROBIOLOGY: Please see below. A/P: 85 yo male for several week history of dizziness, falls with PMHx including arrhythmia s/p PPM, CAD/CABG, PVD/fempop bypass, afib. #arrhythmia - PCU - telemetry monitoring - cardiology c/s - check electrolytes #dizziness/falls - fall precautions - PT - possibly secondary to arrhythmia #dyspnea/SOB - possibly secondary to decomp CHF - echocardiogram pending - card markers, telemetry monitoring #hypothyroidism #DVT prophylaxis Vital Signs Vital Signs Date Time Temp Pulse Resp B/P (MAP) Pulse Ox O2 Delivery O2 Flow Rate FiO2 05/22/21 11:30 79 137/77 (97) 95 Room Air 05/22/21 09:08 97.4 18 Laboratory Data Labs 24H Laboratory Tests 2 05/22/21 09:50: Prothrombin Time 17.6H, Prothromb Time International Ratio 1.40, Activated Partial Thromboplast Time 40.9H 05/22/21 09:59: Immature Granulocyte % (Auto) 0.5, Neutrophils (%) (Auto) 83.4H, Lymphocytes (%) (Auto) 7.5L, Monocytes (%) (Auto) 8.4H, Eosinophils (%) (Auto) 0.1, Basophils (%) (Auto) 0.1, Neutrophils # (Auto) 10.2H, Lymphocytes # (Auto) 0.9L, Monocytes # (Auto) 1.0H, Eosinophils # (Auto) 0.0, Basophils # (Auto) 0.0, Nucleated Red Blood Cells % (auto) 0.0, Anion Gap 5L, Glomerular Filtration Rate > 60.0, Calcium Level 8.2L, Magnesium Level 2.2, Total Bilirubin 0.9#, Direct Bilirubin 0.4H, Aspartate Amino Transf (AST/SGOT) 33, Alanine Aminotransferase (ALT/SGPT) 31, Alkaline Phosphatase 83, Total Creatine Kinase 124, Creatine Kinase MB 2.4, Creatine Kinase MB Relative Index 1.94, Troponin I < 0.02, VO-Xyo-I-Type Natriuretic Peptide 1450H, Total Protein 5.9L, Albumin 2.8L, Albumin/Globulin Ratio 0.9, Lipase 91, Thyroid Stimulating Hormone (TSH) 0.547, Free Thyroxine 1.19, Coronavirus (COVID-19)(PCR) NEGATIVE, Influenza Type A (RT-PCR) NEGATIVE, Influenza Type B (RT-PCR) NEGATIVE, Respiratory Syncytial Virus (PCR) NEGATIVE CBC/BMP Laboratory Tests 05/22/21 09:59 Home Medications Scheduled Apixaban (Eliquis) 5 Mg Tablet, 5 MG PO BID Aspirin (Aspirin EC) 81 Mg Tablet.dr, 81 MG PO QHS Atorvastatin Calcium (Atorvastatin Calcium) 10 Mg Tablet, 10 MG PO QHS Cephalexin (Cephalexin) 500 Mg Capsule, 500 MG PO TID FOR 7 DAYS, STARTED 05/21/21 Cilostazol (Cilostazol) 50 Mg Tablet, 50 MG PO BID Colchicine (Colcrys) 0.6 Mg Tablet, 0.6 MG PO DAILY Levothyroxine Sodium (Levothyroxine Sodium) 50 Mcg Tablet, 50 MCG PO QHS Omeprazole (Omeprazole) 20 Mg Capsule.dr, 20 MG PO Q2D Prednisone (Prednisone) 20 Mg Tablet, 40 MG PO DAILY FOR 5 DAYS, STARTED 05/21/21 Vit A/Vit C/Vit E/Zinc/Copper (Preservision Areds Softgel) 1 Each Capsule, 1 CAP PO DAILY Scheduled PRN Oxycodone HCl/Acetaminophen (Oxycodone-Acetaminophen 5-325) 1 Each Tablet, 1 TAB PO Q4H PRN for PAIN LEVEL 5-10 Allergies Coded Allergies: No Known Allergies (Unverified , 01/27/19) A-FIB/CHADSVASC A-FIB History Current/History of A-Fib/PAF?: Yes Current PO Anticoag Therapy: Yes VAN SERRANO MD May 22, 2021 11:46
--- NOTE | 2021-05-22 12:52 | ECGEPIP ---
[facility] - ED Test Date: 2021-05-22 Pat Name: VAN MCCARTHY Department: Room: - Gender: Male [employer]: VAZQUEZ : 1935 Requested By: Odalis Cruz Order Number: [id number] Reading MD: Odlais Cruz Measurements Intervals [place] Rate: 75 P: 100 TX: 270 QRS: 54 QRSD: 106 T: 64 QT: 388 QTc: 433 Interpretive Statements Sinus rhythm with sinus arrhythmia with 1st degree AV block with occasional pre premature ventricular complexes low qrs voltage limb leads Nonspecific ST T wave changes No prior ECG for comparison Electronically Signed on 05-22-2021 12:52:38 EDT by Odalis Cruz
--- NOTE | 2021-05-22 13:27 | REP ---
INDICATION: sob, per dr ahn. COMPARISON: None. TECHNIQUE: CT of the chest with IV contrast, CT pulmonary artery angiography protocol. FINDINGS: Intravenous contrast infusion is into the right upper extremity. There is severe narrowing of the proximal right subclavian artery as it passes between the clavicle and 1st rib with a large volume of collateral flow in chest wall collaterals around the right shoulder and base of the neck. In spite of this there is adequate opacification of the pulmonary arteries. There are no emboli in the pulmonary trunk or central right and left pulmonary arteries.. There are no emboli in the pulmonary artery lobar segment branches on the right or the left. There is calcified pleural plaque accompanied by mild pleural thickening posteriorly in the left hemithorax. Would be interesting to note the patient has had asbestos exposure. There are no lung masses or nodules. There are no infiltrates or pleural effusions. There is no mediastinal lymphadenopathy. There are 2 borderline enlarged right hilar nodes adjacent to 1 another measuring up to 8 mm short axis each. No left hilar adenopathy. No axillary adenopathy. The thoracic aorta is unremarkable except for calcified atheroma. Cardiac size is normal. There is no pericardial effusion. The visualized upper abdominal contents are unremarkable except for a tiny 2 mm right renal nonobstructive upper pole calculus and several tiny gallbladder calculi along the dependent wall of the gallbladder.. IMPRESSION: There are no pulmonary emboli. There is calcific pleural plaque and mild pleural thickening posteriorly in the left hemithorax raising the possibility of prior asbestos exposure. There are no infiltrates or pleural effusions. There are 2 borderline enlarged or right hilar nodes as described. No other lymphadenopathy. The proximal right subclavian vein is significantly narrowed as it passes between the right 1st rib and right clavicle as discussed above with significant collateral flow in the soft tissues around the right shoulder and neck. There is a tiny nonobstructive right renal upper pole calculus and there are several tiny gallbladder calculi. <Electronically signed by Vini Ramírez > 05/22/21 0862
[2021-05-22 17:00] VITALS: BP 149/79
[2021-05-22] MEDS ORDERED: SLF 3 ML SYR IV PRN (17:20)
[2021-05-22] MEDS: CEPHALEXIN 500 MG CAP PO SCH ×2 (17:36→21:23)
[2021-05-22] MEDS: CILOSTAZOL 100 MG TAB (PLETAL) PO SCH (17:37)
[2021-05-22] MEDS: ACETAMINOPHEN TAB 650MG DOSE (2X325MG) PO PRN ×2 (17:38→23:44)
--- NOTE | 2021-05-22 19:33 | ECHO ---
ECHOCARDIOGRAM DATE OF PROCEDURE: 05/22/2021 Age: 85 Gender: Male Height: 183 cm Weight: 73 kg REFERRING PHYSICIAN: Octavio Varela M.D. INDICATION: Dyspnea. MEASUREMENTS: 2D Measurements: LVOT 2.4 cm Left ventricle diastole 5.0 cm Intraventricular septum 0.99 cm Posterior wall 0.95 cm Aortic root 3.7 cm Left atrium 3.0 cm Proximal ascending aorta 3.1 cm Left atrial volume index 22 Doppler Measurements: No aortic stenosis LVOT velocity 63.9 cm/sec Very mild mitral regurgitation No tricuspid regurgitation No pulmonic regurgitation MITRAL ANNULAR TISSUE DOPPLER: Mitral annular tissue Doppler velocities, although not measured, were reduced. DESCRIPTION: Rhythm was sinus with first degree atrioventricular (AV) block. Image quality was fair. This was a 2D, M-mode, color flow Doppler and pulse flow Doppler examination including mitral annular tissue Doppler. CONCLUSIONS: 1. Normal left ventricle size at end-diastole. Severe reduction of left ventricular (LV) systolic function. Left ventricular ejection fraction (LVEF) 33% (method of discs). Paradoxical septal motion with mild to moderate global LV hypokinesis elsewhere. Grade 1 LV diastolic dysfunction. Extensive fusion of the early rapid filling phase with the atrial filling phase as a consequence of first degree AV block. 2. Normal left atrial size by left atrial volume index. 3. Normal right ventricle size and systolic function. 4. Moderate aortic valve sclerosis of A3-cuspid aortic valve. No aortic stenosis or regurgitation. 5. Moderate mitral annular calcification. Very mild mitral regurgitation. No mitral stenosis. 6. Small pericardial effusion. No diastolic chamber collapse. 7. Mild dilatation of the aortic root at the level of the sinuses of Valsalva. 8. Presence of endocardial, right atrial and right ventricle pacemaker leads. ADDITIONAL COMMENTS AND RECOMMENDATIONS: If this patient has heart failure, recommend addition of Entresto if no contraindication. If this patient has a significant percentage of right ventricle pacing, then recommend upgrade to a biventricular pacemaker or biventricular implantable cardioverter-defibrillator (ICD). Upgrade to a cardiac resynchronization device decision can be made as an outpatient when the patient returns to his development chemist, Dr. Angel Tubbs.
[2021-05-22 20:00] VITALS: BP 100/50
[2021-05-22] MEDS: SLF 3 ML SYR IV SCH (21:23)
[2021-05-22] MEDS: APIXABAN 5 MG TAB (ELIQUIS) PO SCH (21:23)
[2021-05-22] MEDS: ATORVASTATIN 10 MG TAB PO SCH (21:23)
[2021-05-22] MEDS: ASPIRIN 81MG ENTERIC TABLET PO SCH (21:23)
[2021-05-22] MEDS: LEVOTHYROXINE 50MCG TABLET (0.05MG) PO SCH (21:23)
[2021-05-23] VITALS: BP 124/72
[2021-05-23 04:00] VITALS: BP 116/60
[2021-05-23 04:02] LABS: HEMATOCRIT 29.2 % (42.0-52.0); MEAN CORPUSCULAR HEMOGLOBIN 32.6 pg (27.0-33.0); MEAN CORPUSCULAR HGB CONC 34.2 g/dl (32.0-36.5); MEAN CORPUSCULAR VOLUME 95.1 fl (80.0-96.0); PLATELET COUNT, AUTOMATED 182 10^3/uL (150-450); RED BLOOD COUNT 3.07 10^6/uL (4.30-6.10); WHITE BLOOD COUNT 9.6 10^3/uL (4.0-10.0)
[2021-05-23 04:23] LABS: ALBUMIN 2.5 GM/DL (3.2-5.2); ALT/SGPT 33 U/L (12-78); BILIRUBIN,TOTAL 0.7 MG/DL (0.2-1.0); BLOOD UREA NITROGEN 24 MG/DL (7-18); CALCIUM LEVEL 8.1 MG/DL (8.8-10.2); CARBON DIOXIDE LEVEL 29 MEQ/L (21-32); CHLORIDE LEVEL 106 MEQ/L (98-107); GLOMERULAR FILTRATION RATE > 60.0 (>35); GLUCOSE, FASTING 86 MG/DL (70-100); SODIUM LEVEL 141 MEQ/L (136-145); TOTAL PROTEIN 5.3 GM/DL (6.4-8.2)
[2021-05-23] MEDS: SLF 3 ML SYR IV SCH ×3 (05:52→22:00)
[2021-05-23 07:17] LABS: NT-PRO BNP 1838 PG/ML (<450)
[2021-05-23 07:52] VITALS: BP 135/60
[2021-05-23] MEDS: OCUVITE 1 TAB PO SCH (08:25)
[2021-05-23] MEDS: COLCHICINE 0.6 MG TABLET PO SCH (08:25)
[2021-05-23] MEDS: CEPHALEXIN 500 MG CAP PO SCH ×3 (08:25→20:08)
[2021-05-23] MEDS: predniSONE 20 MG TAB PO SCH (08:25)
[2021-05-23] MEDS: APIXABAN 5 MG TAB (ELIQUIS) PO SCH ×2 (08:25→20:08)
[2021-05-23] MEDS: CILOSTAZOL 100 MG TAB (PLETAL) PO SCH ×2 (08:26→16:21)
[2021-05-23] MEDS: ENTRESTO 24-26MG TABLET (SACUBITRIL/VALSARTAN) PO SCH ×2 (09:00→20:08)
--- NOTE | 2021-05-23 09:36 | IPNPDOC ---
Text Note Date of Service The patient was seen on 05/23/21. NOTE Subjective: Patient seen and examined at bedside. No acute overnight events reported. Patient has had no further symptoms of dizziness. He voices no other medical complaints this morning. He does state that he has measured his blood pressure when he has his episodes of dizziness and he does note hypotension associated with his dizziness. He states at home he has measured his blood pressure readings at 80/60 on average with his episodes of dizziness and he typically runs around 100/80. Objective: Vitals: see below, reviewed General: NAD, lying comfortably in bed, elderly HEENT: NC, left scalp laceration Lungs: CTA B/L Heart: +S1S2, RRR Abd: soft, NT, +BS Ext: no edema Neuro: no gross focal deficits Psych: AAOx3 A/P: 85 yo male for several week history of dizziness, falls with PMHx including arrhythmia s/p PPM, CAD/CABG, PVD/fempop bypass, afib. #arrhythmia - PCU - telemetry monitoring - cardiology c/s - discussed with cardiology - starting Entresto - check electrolytes, check orthostatics #dizziness/falls - fall precautions - PT - wound care for head laceration #dyspnea/SOB #HFrEF - possibly secondary to decomp CHF - echocardiogram noted - no acute pathology #hypothyroidism #DVT prophylaxis VS,Fishbone, I+O VS, Fishbone, I+O Laboratory Tests 05/22/21 09:59 05/23/21 03:37 Vital Signs Date Time Temp Pulse Resp B/P (MAP) Pulse Ox O2 Delivery O2 Flow Rate FiO2 05/23/21 07:52 98.2 77 18 135/60 (85) 93 Room Air I&O- Last 24 Hours up to 6 AM 05/23/21 06:00 Intake Total 500 ml Output Total 600 ml Balance -100 ml VAN SERRANO MD May 23, 2021 09:36
[2021-05-23 09:41] LABS: MAGNESIUM LEVEL 2.1 MG/DL (1.8-2.4)
[2021-05-23] MEDS: ACETAMINOPHEN TAB 650MG DOSE (2X325MG) PO PRN ×2 (10:39→21:27)
[2021-05-23 11:59] VITALS: BP_SYST 104; BP_SYST 105; BP_SYST 106; BP_DIAS 51; BP_DIAS 54; BP_DIAS 57
--- NOTE | 2021-05-23 12:08 | ECGEPIP ---
[facility] Test Date: 2021-05-23 Pat Name: VAN MCCARTHY Department: Room: [place] [address] Gender: Male Grades 9 12 Tutor: ras : 1935 Requested By: VAN Juarez Order Number: [id number] Reading MD: aHylie Olivares Measurements Intervals [place] Rate: 69 P: 75 SD: 282 QRS: 75 QRSD: 104 T: 86 QT: 418 QTc: 447 Interpretive Statements Sinus rhythm with 1st degree AV block with occasional premature ventricular complexes INTERMITTANT ATRIAL PACED LOW VOLTAGE LIMB LEADS Nonspecific ST and T wave abnormality MORE MARKED LATERALLY PVCS NOW BIFOCAL Electronically Signed on 05-23-2021 12:08:15 EDT by Haylie Olivares
[2021-05-23 16:00] VITALS: BP 109/54
[2021-05-23 20:00] VITALS: BP_SYST 120; BP_SYST 142; BP_DIAS 62
[2021-05-23] MEDS: ASPIRIN 81MG ENTERIC TABLET PO SCH (20:08)
[2021-05-23] MEDS: ATORVASTATIN 10 MG TAB PO SCH (20:08)
[2021-05-24] VITALS: BP_SYST 105; BP_SYST 122; BP_DIAS 52; BP_DIAS 68
[2021-05-24 04:00] VITALS: BP 116/57
[2021-05-24] MEDS: LEVOTHYROXINE 50MCG TABLET (0.05MG) PO SCH (05:49)
[2021-05-24] MEDS: CILOSTAZOL 100 MG TAB (PLETAL) PO SCH (05:49)
[2021-05-24] MEDS: SLF 3 ML SYR IV SCH (05:49)
[2021-05-24] MEDS: COLCHICINE 0.6 MG TABLET PO SCH (08:32)
[2021-05-24] MEDS: ENTRESTO 24-26MG TABLET (SACUBITRIL/VALSARTAN) PO SCH (08:32)
[2021-05-24] MEDS: CEPHALEXIN 500 MG CAP PO SCH (08:32)
[2021-05-24] MEDS: APIXABAN 5 MG TAB (ELIQUIS) PO SCH (08:32)
[2021-05-24] MEDS: predniSONE 20 MG TAB PO SCH (08:32)
[2021-05-24] MEDS: OCUVITE 1 TAB PO SCH (08:32)
[2021-05-24] MEDS ORDERED: OMEPRAZOLE 20 MG CAP PO SCH (09:00)
[2021-05-24 09:10] VITALS: BP 102/60
[2021-05-24] MEDS ORDERED: ENTR1TAB PO (10:30)
--- NOTE | 2021-05-24 14:14 | DS.PDOC ---
Discharge Summary General Date of Admission May 22, 2021 at 12:13 Date of Discharge 05/24/21 Discharge Summary PROCEDURES PERFORMED DURING STAY: [None]. DISCHARGE DIAGNOSES: #generalized weakness #arrhythmia/av block/PPM/interrogated Oct 2020 #hypothyroidism #CAD/CABG #PVD/right fem/pop bypass #GERD COMPLICATIONS/CHIEF COMPLAINT: Dyspnea, Fall,Palpitations. HISTORY OF PRESENT ILLNESS: 85-year-old gentleman with one week history of worsening dizziness, weakness, shortness of breath and dyspnea on exertion. Most recently, he sustained a fall secondary to his dizziness. He was seen at [facility] and received chao were left cranial laceration. He returns today with persistent dizziness and weakness. He also notes he was seen by his primary care provider roughly 2 weeks ago with some changes to his medications with no improvement with his symptoms. His falls/dizziness go back to September, however over the past week the dizziness has acutely worsened. His dizziness occurs at any time of day, with no clear modifying or illiciting factors. In the ED he was found to be with intermittent arrhythmias, appearing to be atrial tachycardia, and atrial fibrillation. This was discussed with cardiology. He is currently denying headaches, changes in vision, abdominal pain, diarrhea, sick contacts or recent travel. HOSPITAL COURSE: Patient was admitted for further evaluation and treatment. Case was discussed with cardiology. His arrhythmias noted on telemetry were deemed to be status quo and known, with no further intervention recommended. He was noted to be in compensated congestive heart failure and and recommendations were to start entresto. Recommendations for discharge with outpatient follow up. He was seen by PT and cleared for discharge home. DISCHARGE MEDICATIONS: Please see below. ALLERGIES: Please see below. PHYSICAL EXAMINATION ON DISCHARGE: Vitals: see below General: NAD, lying comfortably in bed, elderly, frail HEENT: NC/AT, EOMI Lungs: CTA B/L Heart: +S1S2, RRR Abd: soft, NT, +BS Ext: no edema Neuro: no gross focal deficits Psych: AAOx3 LABORATORY DATA: Please see below. DISPOSITION: Home Health Service. DISCHARGE INSTRUCTIONS: 1. PCP in 3-5 days 2. cardiology in 3-7 days DISCHARGE CONDITION: [Stable]. TIME SPENT ON DISCHARGE: 35 minutes. Vital Signs/I&Os Vital Signs Date Time Temp Pulse Resp B/P (MAP) Pulse Ox O2 Delivery O2 Flow Rate FiO2 05/24/21 09:10 97.8 80 17 102/60 (74) 92 Room Air I&O- Last 24 Hours up to 6 AM 05/24/21 05:59 Intake Total 900 ml Output Total 1200 ml Balance -300 ml Microbiology Microbiology 05/23/21 Blood Culture - Preliminary, Resulted No growth after 24 hours . All specim... 05/23/21 Blood Culture - Preliminary, Resulted No growth after 24 hours . All specim... Discharge Medications Scheduled Apixaban (Eliquis) 5 Mg Tablet, 5 MG PO BID, (Reported) Aspirin (Aspirin EC) 81 Mg Tablet.dr, 81 MG PO QHS, (Reported) Atorvastatin Calcium (Atorvastatin Calcium) 10 Mg Tablet, 10 MG PO QHS, (Reported) Cephalexin (Cephalexin) 500 Mg Capsule, 500 MG PO TID, (Reported) FOR 7 DAYS, STARTED 05/21/21 Cilostazol (Cilostazol) 50 Mg Tablet, 50 MG PO BID, (Reported) Colchicine (Colcrys) 0.6 Mg Tablet, 0.6 MG PO DAILY, (Reported) Levothyroxine Sodium (Levothyroxine Sodium) 50 Mcg Tablet, 50 MCG PO QHS, (Reported) Omeprazole (Omeprazole) 20 Mg Capsule.dr, 20 MG PO Q2D, (Reported) Prednisone (Prednisone) 20 Mg Tablet, 40 MG PO DAILY, (Reported) FOR 5 DAYS, STARTED 05/21/21 Sacubitril/Valsartan (Entresto 24 mg-26 mg Tablet) 1 Each Tablet, 1 TAB PO BID Vit A/Vit C/Vit E/Zinc/Copper (Preservision Areds Softgel) 1 Each Capsule, 1 CAP PO DAILY, (Reported) Scheduled PRN Oxycodone HCl/Acetaminophen (Oxycodone-Acetaminophen 5-325) 1 Each Tablet, 1 TAB PO Q4H PRN for PAIN LEVEL 5-10, (Reported) Allergies Coded Allergies: No Known Allergies (Unverified , 01/27/19) VAN SERRANO MD May 24, 2021 14:14
== END 2021-05-24 13:08 | disposition home health service (06) | DRG 310 ==
LOC: M ED 09:08 → M ED INP 12:13 → ENRESERV 15:38 → M PCU 16:38
PROVIDERS: ADMIT Internal Medicine; ATTEND Internal Medicine
DX: I47.1 Supraventricular tachycardia (principal); I50.9 Heart failure, unspecified; R42 Dizziness and giddiness; E03.9 Hypothyroidism, unspecified; I25.10 Atherosclerotic heart disease of native coronary artery without angina pectoris; I73.9 Peripheral vascular disease, unspecified; Z87.891 Personal history of nicotine dependence; K21.9 Gastro-esophageal reflux disease without esophagitis; R53.1 Weakness; Z95.0 Presence of cardiac pacemaker; R06.02 Shortness of breath; Z20.822 Contact with and (suspected) exposure to COVID-19; Z79.01 Long term (current) use of anticoagulants; Z79.82 Long term (current) use of aspirin; Z79.899 Other long term (current) drug therapy; Z98.62 Peripheral vascular angioplasty status; Z98.61 Coronary angioplasty status

== ENCOUNTER → 2021-06-28 | Outpatient (REF) | payer MEDICARE, BC, OTHER ==
[~2021-06-28] MED LIST changes: +ASPI81TA26 PO; +CEPH500C PO; +ELIQ5TAB PO; +ENTR1TAB PO; +LEVO50TA5 PO; +OXYC1TAB23 PO; +PRED20TA PO
[2021-06-28 11:27] LABS: HEMATOCRIT 43.3 % (42.0-52.0); HEMOGLOBIN 14.2 g/dl (13.5-17.5); MEAN CORPUSCULAR HEMOGLOBIN 33.3 pg (27.0-33.0); MEAN CORPUSCULAR HGB CONC 32.8 g/dl (32.0-36.5); MEAN CORPUSCULAR VOLUME 101.6 fl (80.0-96.0); PLATELET COUNT, AUTOMATED 232 10^3/uL (150-450); RED BLOOD COUNT 4.26 10^6/uL (4.30-6.10); WHITE BLOOD COUNT 6.3 10^3/uL (4.0-10.0)
[2021-06-28 12:11] LABS: ALBUMIN 3.3 GM/DL (3.2-5.2); CALCIUM LEVEL 8.8 MG/DL (8.8-10.2); CREATININE FOR GFR 1.49 MG/DL (0.70-1.30); GLOMERULAR FILTRATION RATE 47.7 (>35)
== END ==
LOC: M LABDRAWC 11:09
PROVIDERS: ATTEND Internal Medicine Cardiovascular Disease
DX: I50.42 Chronic combined systolic (congestive) and diastolic (congestive) heart failure (principal)

== ENCOUNTER → 2021-07-29 | Outpatient (REF) | payer MEDICARE, BC, OTHER ==
[2021-07-29 13:07] LABS: ALBUMIN 3.4 GM/DL (3.2-5.2); CALCIUM LEVEL 9.1 MG/DL (8.8-10.2); CREATININE FOR GFR 1.51 MG/DL (0.70-1.30); PHOSPHORUS LEVEL 3.3 MG/DL (2.5-4.9); POTASSIUM SERUM 4.4 MEQ/L (3.5-5.1)
== END ==
LOC: M LABDRAWC 11:21
PROVIDERS: ATTEND Internal Medicine Cardiovascular Disease
DX: I50.42 Chronic combined systolic (congestive) and diastolic (congestive) heart failure (principal)

== ENCOUNTER → 2021-09-04 | Outpatient (REF) | payer MEDICARE, BC, OTHER ==
[2021-09-04 16:50] LABS: ALBUMIN 3.3 GM/DL (3.2-5.2); CALCIUM LEVEL 9.2 MG/DL (8.8-10.2); CREATININE FOR GFR 1.51 MG/DL (0.70-1.30); POTASSIUM SERUM 4.6 MEQ/L (3.5-5.1)
== END ==
LOC: M LABDRAWC 15:36
PROVIDERS: ATTEND Internal Medicine Cardiovascular Disease
DX: I50.42 Chronic combined systolic (congestive) and diastolic (congestive) heart failure (principal)

== ENCOUNTER → 2021-10-01 | Outpatient (REF) | payer MEDICARE, OTHER ==
[2021-10-02 12:14] LABS: FREE T4 1.1 NG/DL (0.76-1.46); THYROID STIMULATING HORMONE 2.44 uIU/ML (0.358-3.740)
== END ==
LOC: M SFHCCLAY 14:19
PROVIDERS: ATTEND Family Medicine
DX: E03.9 Hypothyroidism, unspecified (principal)

== ENCOUNTER → 2021-10-01 | Outpatient (REF) | payer MEDICARE, OTHER ==
[2021-10-02 12:11] LABS: HEMATOCRIT 42.3 % (42.0-52.0); HEMOGLOBIN 13.9 g/dl (13.5-17.5); MEAN CORPUSCULAR HEMOGLOBIN 32.2 pg (27.0-33.0); MEAN CORPUSCULAR HGB CONC 32.9 g/dl (32.0-36.5); MEAN CORPUSCULAR VOLUME 97.9 fl (80.0-96.0); PLATELET COUNT, AUTOMATED 201 10^3/uL (150-450); RED BLOOD COUNT 4.32 10^6/uL (4.30-6.10); WHITE BLOOD COUNT 8.6 10^3/uL (4.0-10.0)
[2021-10-02 12:32] LABS: ALBUMIN 3.5 GM/DL (3.2-5.2); BILIRUBIN,TOTAL 1.5 MG/DL (0.2-1.0); CALCIUM LEVEL 9.2 MG/DL (8.8-10.2); CREATININE FOR GFR 1.71 MG/DL (0.70-1.30); GLOMERULAR FILTRATION RATE 40.7 (>35); POTASSIUM SERUM 4.2 MEQ/L (3.5-5.1); TOTAL PROTEIN 6.7 GM/DL (6.4-8.2)
== END ==
LOC: M LABDRAWC 11:40
PROVIDERS: ATTEND Internal Medicine Cardiovascular Disease
DX: I48.0 Paroxysmal atrial fibrillation (principal); I50.42 Chronic combined systolic (congestive) and diastolic (congestive) heart failure; I11.0 Hypertensive heart disease with heart failure; I25.10 Atherosclerotic heart disease of native coronary artery without angina pectoris; E03.9 Hypothyroidism, unspecified
CPT/HCPCS: 80053; 83880; 84439; 84443; 85027; G0463

== ENCOUNTER → 2021-11-06 | Outpatient (REF) | payer MEDICARE, OTHER ==
[2021-11-06 16:38] LABS: CALCIUM LEVEL 9.2 MG/DL (8.8-10.2); CREATININE FOR GFR 1.61 MG/DL (0.70-1.30); GLOMERULAR FILTRATION RATE 43.5 (>35); POTASSIUM SERUM 5.4 MEQ/L (3.5-5.1)
== END ==
LOC: M LABDRAWC 15:35
PROVIDERS: ATTEND Internal Medicine Cardiovascular Disease
DX: I48.0 Paroxysmal atrial fibrillation (principal)

== ENCOUNTER → 2021-11-27 | Outpatient (REF) | payer MEDICARE, OTHER ==
[2021-11-28 11:53] LABS: MEAN CORPUSCULAR HEMOGLOBIN 32.6 pg (27.0-33.0); MEAN CORPUSCULAR HGB CONC 33.3 g/dl (32.0-36.5); MEAN CORPUSCULAR VOLUME 97.9 fl (80.0-96.0); PLATELET COUNT, AUTOMATED 204 10^3/uL (150-450); RED BLOOD COUNT 4.29 10^6/uL (4.30-6.10); WHITE BLOOD COUNT 8.8 10^3/uL (4.0-10.0)
[2021-11-28 12:50] LABS: ALBUMIN 3.6 GM/DL (3.2-5.2); CALCIUM LEVEL 9.3 MG/DL (8.8-10.2); CREATININE FOR GFR 1.76 MG/DL (0.70-1.30); GLOMERULAR FILTRATION RATE 39.3 (>35); POTASSIUM SERUM 6.2 MEQ/L (3.5-5.1); TOTAL PROTEIN 6.8 GM/DL (6.4-8.2)
== END ==
LOC: M LABDRAWC 11:13
PROVIDERS: ATTEND Internal Medicine Cardiovascular Disease
DX: I48.0 Paroxysmal atrial fibrillation (principal); I50.42 Chronic combined systolic (congestive) and diastolic (congestive) heart failure; I25.10 Atherosclerotic heart disease of native coronary artery without angina pectoris; I11.0 Hypertensive heart disease with heart failure

== ENCOUNTER → 2021-12-03 | Outpatient (REF) | payer MEDICARE, OTHER ==
[2021-12-03 17:28] LABS: ALBUMIN 3.3 GM/DL (3.2-5.2); CREATININE FOR GFR 1.46 MG/DL (0.70-1.30); GLOMERULAR FILTRATION RATE 48.7 (>35); PHOSPHORUS LEVEL 3.1 MG/DL (2.5-4.9); POTASSIUM SERUM 4.2 MEQ/L (3.5-5.1)
== END ==
LOC: M LABDRAWC 16:18
PROVIDERS: ATTEND Internal Medicine Cardiovascular Disease
DX: N18.30 Chronic kidney disease, stage 3 unspecified (principal); I50.42 Chronic combined systolic (congestive) and diastolic (congestive) heart failure; E87.5 Hyperkalemia

== ENCOUNTER → 2021-12-18 | Outpatient (REF) | payer MEDICARE, OTHER ==
[2021-12-18 17:17] LABS: ALBUMIN 3.5 GM/DL (3.2-5.2); CALCIUM LEVEL 9.1 MG/DL (8.8-10.2); CREATININE FOR GFR 1.3 MG/DL (0.70-1.30); GLOMERULAR FILTRATION RATE 55.7 (>35); PHOSPHORUS LEVEL 3.1 MG/DL (2.5-4.9); POTASSIUM SERUM 4.2 MEQ/L (3.5-5.1)
== END ==
LOC: M LABDRAWC 15:31
PROVIDERS: ATTEND Internal Medicine Cardiovascular Disease
DX: I50.42 Chronic combined systolic (congestive) and diastolic (congestive) heart failure (principal); I11.0 Hypertensive heart disease with heart failure; E87.5 Hyperkalemia

== ENCOUNTER → 2022-01-14 | Outpatient (CLI) | payer MEDICARE, OTHER | LOC: M PLAIMG 12:41 | PROVIDERS: ATTEND Internal Medicine Cardiovascular Disease | DX: M19.011 Primary osteoarthritis, right shoulder (principal) ==

== ENCOUNTER → 2022-02-13 | Outpatient (REF) | payer MEDICARE, OTHER ==
[2022-02-13 15:53] LABS: BASO % 0.6 % (0.0-1.0); EOS # 0.1 10^3/uL (0.0-0.5); EOS % 1.5 % (0.0-3.0); HEMOGLOBIN 13.8 g/dl (13.5-17.5); LYMPH # 2.5 10^3/uL (1.5-5.0); LYMPH % 35.4 % (24.0-44.0); MEAN CORPUSCULAR HEMOGLOBIN 32.5 pg (27.0-33.0); MEAN CORPUSCULAR HGB CONC 33.7 g/dl (32.0-36.5); MEAN CORPUSCULAR VOLUME 96.5 fl (80.0-96.0); MONO # 0.9 10^3/uL (0.0-0.8); MONO % 12.2 % (2.0-8.0); NEUTROPHILS # 3.6 10^3/uL (1.5-8.5); NEUTROPHILS % 50.2 % (36.0-66.0); PLATELET COUNT, AUTOMATED 205 10^3/uL (150-450); RED BLOOD COUNT 4.25 10^6/uL (4.30-6.10); WHITE BLOOD COUNT 7.2 10^3/uL (4.0-10.0)
[2022-02-13 16:25] LABS: ALBUMIN 3.7 GM/DL (3.2-5.2); CALCIUM LEVEL 9.6 MG/DL (8.8-10.2); CREATININE FOR GFR 1.37 MG/DL (0.70-1.30); GLOMERULAR FILTRATION RATE 52.4 (>35); PHOSPHORUS LEVEL 3.5 MG/DL (2.5-4.9); POTASSIUM SERUM 4.8 MEQ/L (3.5-5.1)
== END ==
LOC: M LABDRAWC 15:29
PROVIDERS: ATTEND Internal Medicine Cardiovascular Disease
DX: I48.0 Paroxysmal atrial fibrillation (principal); M25.511 Pain in right shoulder; I50.42 Chronic combined systolic (congestive) and diastolic (congestive) heart failure

== ENCOUNTER → 2022-03-27 | Outpatient (REF) | payer MEDICARE, OTHER ==
[2022-03-27 16:11] LABS: HEMATOCRIT 42.1 % (42.0-52.0); HEMOGLOBIN 14.2 g/dl (13.5-17.5); MEAN CORPUSCULAR HEMOGLOBIN 32.6 pg (27.0-33.0); MEAN CORPUSCULAR HGB CONC 33.7 g/dl (32.0-36.5); MEAN CORPUSCULAR VOLUME 96.8 fl (80.0-96.0); PLATELET COUNT, AUTOMATED 194 10^3/uL (150-450); RED BLOOD COUNT 4.35 10^6/uL (4.30-6.10); WHITE BLOOD COUNT 7.6 10^3/uL (4.0-10.0)
[2022-03-27 17:20] LABS: ALBUMIN 3.8 GM/DL (3.2-5.2); CALCIUM LEVEL 9.2 MG/DL (8.8-10.2); CREATININE FOR GFR 1.47 MG/DL (0.70-1.30); GLOMERULAR FILTRATION RATE 48.4 (>35); PHOSPHORUS LEVEL 3.7 MG/DL (2.5-4.9); POTASSIUM SERUM 5.1 MEQ/L (3.5-5.1)
== END ==
LOC: M LABDRAWC 15:33
PROVIDERS: ATTEND Internal Medicine Cardiovascular Disease
DX: I50.42 Chronic combined systolic (congestive) and diastolic (congestive) heart failure (principal)

== ENCOUNTER 2022-04-01 13:47 | Day surgery (SDC) | payer MEDICARE, BC, OTHER ==
[~2022-04-01] VITALS: Ht 182.9 cm; Wt 71.2 kg
[~2022-04-01 13:47] MED LIST changes: +ceFAZolin SOD 2 GM in IV 1 EA IV ONE
[2022-04-01] MEDS ORDERED: propofoL 200 MG/20 ML VIAL As Ordered ONE (14:07)
[2022-04-01] MEDS ORDERED: fentaNYL 100 MCG/2 ML INJECTION As Ordered ONE (14:07)
[2022-04-01] MEDS ORDERED: LIDOCAINE 2% 100MG/5ML SDV (FOR ANES.) As Ordered ONE (14:07)
[2022-04-01] MEDS ORDERED: LIDOCAINE 1% SDV 30ML VIAL As Ordered ONE (14:27)
[2022-04-01] MEDS ORDERED: ceFAZolin 1GM VIAL (J0690 PER 500MG) As Ordered ONE (14:27)
[2022-04-01] MEDS ORDERED: PHENYLephrine 500MCG 5ML (100MCG/ML) SYRINGE As Ordered ONE (15:19)
[2022-04-01 16:07] VITALS: BP 127/68
== END 2022-04-01 16:20 | disposition home or self-care (01) ==
LOC: M SDC 13:47
PROVIDERS: ATTEND Internal Medicine Cardiovascular Disease
DX: Z45.010 Encounter for checking and testing of cardiac pacemaker pulse generator [battery] (principal); I49.5 Sick sinus syndrome; I48.0 Paroxysmal atrial fibrillation; I11.0 Hypertensive heart disease with heart failure; I50.40 Unspecified combined systolic (congestive) and diastolic (congestive) heart failure; I95.1 Orthostatic hypotension; I49.3 Ventricular premature depolarization; I44.0 Atrioventricular block, first degree; I73.9 Peripheral vascular disease, unspecified; I65.29 Occlusion and stenosis of unspecified carotid artery; Z79.899 Other long term (current) drug therapy; Z79.01 Long term (current) use of anticoagulants; Z79.82 Long term (current) use of aspirin; Z79.890 Hormone replacement therapy
CPT/HCPCS: 33228; 87426; C1785; J0690; J2370; J3010

== ENCOUNTER → 2022-04-08 | Outpatient (REF) | payer MEDICARE, BC, OTHER ==
[~2022-04-08] MED LIST changes: -ceFAZolin SOD 2 GM in IV 1 EA IV ONE
== END ==
LOC: M SFHCDERM 17:18
PROVIDERS: ATTEND Nurse Practitioner Family
DX: L57.0 Actinic keratosis (principal)
CPT/HCPCS: 11102; 17000; 17003; 88305; G0463

== ENCOUNTER → 2022-04-16 | Outpatient (REF) | payer MEDICARE, OTHER ==
[2022-04-16 17:28] LABS: FREE T4 1.08 NG/DL (0.76-1.46); THYROID STIMULATING HORMONE 2.6 uIU/ML (0.358-3.740)
== END ==
LOC: M SFHCCLAY 13:39
PROVIDERS: ATTEND Family Medicine
DX: E03.9 Hypothyroidism, unspecified (principal)

== ENCOUNTER → 2022-07-08 | Outpatient (REF) | payer MEDICARE, OTHER ==
[~2022-07-08] MED LIST changes: -CILO50TA PO; +CILO50TA2 PO
[2022-07-08 18:02] LABS: BASO % 0.5 % (0.0-1.0); EOS # 0.1 10^3/uL (0.0-0.5); EOS % 1.9 % (0.0-3.0); HEMATOCRIT 40.8 % (42.0-52.0); HEMOGLOBIN 13.5 g/dl (13.5-17.5); LYMPH # 2.3 10^3/uL (1.5-5.0); LYMPH % 31.7 % (24.0-44.0); MEAN CORPUSCULAR HEMOGLOBIN 33.1 pg (27.0-33.0); MEAN CORPUSCULAR HGB CONC 33.1 g/dl (32.0-36.5); MONO % 13.5 % (2.0-8.0); NEUTROPHILS # 3.8 10^3/uL (1.5-8.5); NEUTROPHILS % 52.1 % (36.0-66.0); PLATELET COUNT, AUTOMATED 203 10^3/uL (150-450); RED BLOOD COUNT 4.08 10^6/uL (4.30-6.10); WHITE BLOOD COUNT 7.4 10^3/uL (4.0-10.0)
[2022-07-08 18:36] LABS: ALBUMIN 3.5 GM/DL (3.2-5.2); BILIRUBIN,TOTAL 0.9 MG/DL (0.2-1.0); CALCIUM LEVEL 9.1 MG/DL (8.8-10.2); CREATININE FOR GFR 1.41 MG/DL (0.70-1.30); GLOMERULAR FILTRATION RATE 50.7 (>35); POTASSIUM SERUM 4.5 MEQ/L (3.5-5.1); TOTAL PROTEIN 6.8 GM/DL (6.4-8.2)
== END ==
LOC: M LABDRAWC 17:19
PROVIDERS: ATTEND Internal Medicine Cardiovascular Disease
DX: I50.42 Chronic combined systolic (congestive) and diastolic (congestive) heart failure (principal)

== ENCOUNTER → 2022-07-08 | Outpatient (CLI) | payer MEDICARE, OTHER | LOC: M CLY 15:01 | PROVIDERS: ATTEND Family Medicine | DX: M19.011 Primary osteoarthritis, right shoulder (principal) ==

== ENCOUNTER → 2022-07-14 | Outpatient (REF) | payer MEDICARE, OTHER | LOC: M SFHCDERM 14:22 | PROVIDERS: ATTEND Physician Assistant | DX: D23.72 Other benign neoplasm of skin of left lower limb, including hip (principal) ==

== ENCOUNTER → 2022-10-01 | Outpatient (REF) | payer MEDICARE, OTHER ==
[2022-10-01 18:09] LABS: ALBUMIN 3.3 G/DL (3.2-5.2); BILIRUBIN,TOTAL 1.1 MG/DL (0.3-1.2); CALCIUM LEVEL 9.1 MG/DL (8.3-10.6); CREATININE FOR GFR 1.39 MG/DL (0.70-1.30); GLOMERULAR FILTRATION RATE 51.6 (>35); POTASSIUM SERUM 4.5 MMOL/L (3.5-5.1); TOTAL PROTEIN 6.4 G/DL (5.7-8.2)
[2022-10-01 18:20] LABS: BASO # 0.1 10^3/uL (0.0-0.2); BASO % 0.7 % (0.0-1.0); EOS # 0.1 10^3/uL (0.0-0.5); HEMATOCRIT 41.8 % (42.0-52.0); HEMOGLOBIN 13.7 g/dl (13.5-17.5); LYMPH # 2.6 10^3/uL (1.5-5.0); LYMPH % 36.6 % (24.0-44.0); MEAN CORPUSCULAR HEMOGLOBIN 32.7 pg (27.0-33.0); MEAN CORPUSCULAR HGB CONC 32.8 g/dl (32.0-36.5); MEAN CORPUSCULAR VOLUME 99.8 fl (80.0-96.0); MONO # 0.9 10^3/uL (0.0-0.8); NEUTROPHILS # 3.4 10^3/uL (1.5-8.5); NEUTROPHILS % 47.6 % (36.0-66.0); PLATELET COUNT, AUTOMATED 188 10^3/uL (150-450); RED BLOOD COUNT 4.19 10^6/uL (4.30-6.10); WHITE BLOOD COUNT 7.1 10^3/uL (4.0-10.0)
== END ==
LOC: M LABDRAWC 16:53
PROVIDERS: ATTEND Internal Medicine Cardiovascular Disease
DX: I50.42 Chronic combined systolic (congestive) and diastolic (congestive) heart failure (principal)

== ENCOUNTER → 2023-01-07 | Outpatient (REF) | payer MEDICARE, OTHER ==
[2023-01-07 18:51] LABS: HEMATOCRIT 43.1 % (42.0-52.0); HEMOGLOBIN 14.2 g/dl (13.5-17.5); MEAN CORPUSCULAR HEMOGLOBIN 32.7 pg (27.0-33.0); MEAN CORPUSCULAR HGB CONC 32.9 g/dl (32.0-36.5); MEAN CORPUSCULAR VOLUME 99.3 fl (80.0-96.0); PLATELET COUNT, AUTOMATED 201 10^3/uL (150-450); RED BLOOD COUNT 4.34 10^6/uL (4.30-6.10); WHITE BLOOD COUNT 7.1 10^3/uL (4.0-10.0)
[2023-01-07 19:18] LABS: ALBUMIN 3.5 G/DL (3.2-5.2); CREATININE FOR GFR 1.38 MG/DL (0.70-1.30); GLOMERULAR FILTRATION RATE 51.9 (>35); PHOSPHORUS LEVEL 3.3 MG/DL (2.4-5.1); POTASSIUM SERUM 4.9 MMOL/L (3.5-5.1)
== END ==
LOC: M LABDRAWC 17:22
PROVIDERS: ATTEND Internal Medicine Cardiovascular Disease
DX: I50.42 Chronic combined systolic (congestive) and diastolic (congestive) heart failure (principal); I48.0 Paroxysmal atrial fibrillation; I11.0 Hypertensive heart disease with heart failure; I25.10 Atherosclerotic heart disease of native coronary artery without angina pectoris

== ENCOUNTER → 2023-04-15 | Outpatient (REF) | payer MEDICARE, OTHER ==
[2023-04-15 18:30] LABS: ALBUMIN 3.6 G/DL (3.2-5.2); BILIRUBIN,TOTAL 1.3 MG/DL (0.3-1.2); CALCIUM LEVEL 9.8 MG/DL (8.3-10.6); CREATININE FOR GFR 1.36 MG/DL (0.70-1.30); GLOMERULAR FILTRATION RATE 52.8 (>35); POTASSIUM SERUM 4.3 MMOL/L (3.5-5.1); TOTAL PROTEIN 6.5 G/DL (5.7-8.2)
[2023-04-15 18:38] LABS: HEMATOCRIT 43.3 % (42.0-52.0); HEMOGLOBIN 14.3 g/dl (13.5-17.5); MEAN CORPUSCULAR HEMOGLOBIN 32.7 pg (27.0-33.0); MEAN CORPUSCULAR VOLUME 99.1 fl (80.0-96.0); PLATELET COUNT, AUTOMATED 216 10^3/uL (150-450); RED BLOOD COUNT 4.37 10^6/uL (4.30-6.10); WHITE BLOOD COUNT 7.2 10^3/uL (4.0-10.0)
== END ==
LOC: M LABDRAWC 17:39
PROVIDERS: ATTEND Internal Medicine Cardiovascular Disease
DX: I48.0 Paroxysmal atrial fibrillation (principal); I50.42 Chronic combined systolic (congestive) and diastolic (congestive) heart failure; I11.0 Hypertensive heart disease with heart failure; I25.10 Atherosclerotic heart disease of native coronary artery without angina pectoris

== ENCOUNTER → 2023-07-28 | Outpatient (CLI) | payer MEDICARE, OTHER | LOC: M CLY 11:13 | PROVIDERS: ATTEND Nurse Practitioner Family | DX: R06.02 Shortness of breath (principal) ==

== ENCOUNTER → 2023-07-28 | Outpatient (REF) | payer MEDICARE, BC, OTHER ==
[2023-07-28 18:28] LABS: BASO % 0.3 % (0.0-1.0); EOS # 0.1 10^3/uL (0.0-0.5); EOS % 1.2 % (0.0-3.0); HEMATOCRIT 42.1 % (42.0-52.0); HEMOGLOBIN 14.1 g/dl (13.5-17.5); LYMPH # 1.2 10^3/uL (1.5-5.0); MEAN CORPUSCULAR HEMOGLOBIN 32.7 pg (27.0-33.0); MEAN CORPUSCULAR HGB CONC 33.5 g/dl (32.0-36.5); MEAN CORPUSCULAR VOLUME 97.7 fl (80.0-96.0); MONO # 0.9 10^3/uL (0.0-0.8); MONO % 13.5 % (2.0-8.0); NEUTROPHILS # 4.6 10^3/uL (1.5-8.5); NEUTROPHILS % 67.7 % (36.0-66.0); PLATELET COUNT, AUTOMATED 240 10^3/uL (150-450); RED BLOOD COUNT 4.31 10^6/uL (4.30-6.10); WHITE BLOOD COUNT 6.8 10^3/uL (4.0-10.0)
[2023-07-28 18:29] LABS: ALBUMIN 3.2 G/DL (3.2-5.2); BILIRUBIN,TOTAL 1.1 MG/DL (0.3-1.2); CALCIUM LEVEL 8.8 MG/DL (8.3-10.6); CREATININE FOR GFR 1.37 MG/DL (0.70-1.30); GLOMERULAR FILTRATION RATE 52.3 (>35); MAGNESIUM LEVEL 1.7 MG/DL (1.8-2.4); POTASSIUM SERUM 4.5 MMOL/L (3.5-5.1); TOTAL PROTEIN 6.3 G/DL (5.7-8.2)
== END ==
LOC: M SFHCCLAY 11:04
PROVIDERS: ATTEND Nurse Practitioner Family
DX: R06.02 Shortness of breath (principal); R53.1 Weakness; K21.9 Gastro-esophageal reflux disease without esophagitis

== ENCOUNTER → 2023-09-18 | Outpatient (REF) | payer MEDICARE, BC, OTHER ==
[2023-09-18 19:18] LABS: THYROID STIMULATING HORMONE 2.53 uIU/ML (0.55-4.78)
[2023-09-18 19:19] LABS: FREE T4 1.22 NG/DL (0.89-1.76)
== END ==
LOC: M SFHCCLAY 13:08
PROVIDERS: ATTEND Family Medicine
DX: E03.9 Hypothyroidism, unspecified (principal)

== ENCOUNTER → 2023-09-18 | Outpatient (REF) | payer MEDICARE, BC, OTHER ==
[2023-09-18 19:14] LABS: ALBUMIN 3.4 G/DL (3.2-5.2); CALCIUM LEVEL 9.3 MG/DL (8.3-10.6); CREATININE FOR GFR 1.32 MG/DL (0.70-1.30); GLOMERULAR FILTRATION RATE 54.6 (>35); MAGNESIUM LEVEL 1.8 MG/DL (1.8-2.4); PHOSPHORUS LEVEL 3.9 MG/DL (2.4-5.1); POTASSIUM SERUM 4.8 MMOL/L (3.5-5.1)
== END ==
LOC: M LABDRAWC 17:05
PROVIDERS: ATTEND Internal Medicine Cardiovascular Disease
DX: I50.42 Chronic combined systolic (congestive) and diastolic (congestive) heart failure (principal)

== ENCOUNTER → 2023-12-09 | Outpatient (CLI) | payer MEDICARE, BC, OTHER | LOC: M CARPUL 13:11 | PROVIDERS: ATTEND Family Medicine | DX: R06.02 Shortness of breath (principal) ==

== ENCOUNTER → 2023-12-17 | Outpatient (CLI) | payer MEDICARE, BC | LOC: M SLEEP HO 13:50 | PROVIDERS: ATTEND Internal Medicine Cardiovascular Disease | DX: G47.9 Sleep disorder, unspecified (principal); I50.32 Chronic diastolic (congestive) heart failure; I27.20 Pulmonary hypertension, unspecified ==

== ENCOUNTER → 2024-01-11 | Outpatient (REF) | payer MEDICARE, OTHER ==
[2024-01-11 19:01] LABS: BASO % 0.4 % (0.0-1.0); EOS # 0.1 10^3/uL (0.0-0.5); EOS % 1.5 % (0.0-3.0); HEMATOCRIT 40.8 % (42.0-52.0); HEMOGLOBIN 13.7 g/dl (13.5-17.5); LYMPH # 1.8 10^3/uL (1.5-5.0); LYMPH % 24.9 % (24.0-44.0); MEAN CORPUSCULAR HEMOGLOBIN 33.4 pg (27.0-33.0); MEAN CORPUSCULAR HGB CONC 33.6 g/dl (32.0-36.5); MEAN CORPUSCULAR VOLUME 99.5 fl (80.0-96.0); MONO # 0.9 10^3/uL (0.0-0.8); MONO % 12.4 % (2.0-8.0); NEUTROPHILS # 4.5 10^3/uL (1.5-8.5); NEUTROPHILS % 60.5 % (36.0-66.0); PLATELET COUNT, AUTOMATED 200 10^3/uL (150-450); WHITE BLOOD COUNT 7.4 10^3/uL (4.0-10.0)
[2024-01-11 19:08] LABS: ALBUMIN 3.4 G/DL (3.2-5.2); BILIRUBIN,TOTAL 0.9 MG/DL (0.3-1.2); CALCIUM LEVEL 9.1 MG/DL (8.3-10.6); CREATININE FOR GFR 1.44 MG/DL (0.70-1.30); GLOMERULAR FILTRATION RATE 49.3 (>35); POTASSIUM SERUM 4.7 MMOL/L (3.5-5.1); TOTAL PROTEIN 6.4 G/DL (5.7-8.2)
== END ==
LOC: M SFHCCLAY 13:46
PROVIDERS: ATTEND Family Medicine
DX: I13.0 Hypertensive heart and chronic kidney disease with heart failure and stage 1 through stage 4 chronic kidney disease, or unspecified chronic kidney disease (principal)

== ENCOUNTER → 2024-03-15 | Outpatient (REF) | payer MEDICARE, OTHER ==
[2024-03-15 18:04] LABS: HEMATOCRIT 40.7 % (42.0-52.0); HEMOGLOBIN 13.7 g/dl (13.5-17.5); MEAN CORPUSCULAR HGB CONC 33.7 g/dl (32.0-36.5); MEAN CORPUSCULAR VOLUME 98.1 fl (80.0-96.0); PLATELET COUNT, AUTOMATED 197 10^3/uL (150-450); RED BLOOD COUNT 4.15 10^6/uL (4.30-6.10); WHITE BLOOD COUNT 8.9 10^3/uL (4.0-10.0)
[2024-03-15 18:18] LABS: ALBUMIN 3.4 G/DL (3.2-5.2); BILIRUBIN,TOTAL 1.1 MG/DL (0.3-1.2); CALCIUM LEVEL 9.4 MG/DL (8.3-10.6); CREATININE FOR GFR 1.47 MG/DL (0.70-1.30); GLOMERULAR FILTRATION RATE 48.1 (>35); MAGNESIUM LEVEL 1.8 MG/DL (1.8-2.4); TOTAL PROTEIN 6.3 G/DL (5.7-8.2)
== END ==
LOC: M LABDRAWC 17:18
PROVIDERS: ATTEND Internal Medicine Cardiovascular Disease
DX: I50.32 Chronic diastolic (congestive) heart failure (principal); I48.0 Paroxysmal atrial fibrillation; I11.0 Hypertensive heart disease with heart failure; I25.10 Atherosclerotic heart disease of native coronary artery without angina pectoris

== ENCOUNTER → 2024-05-05 | Outpatient (REF) | payer MEDICARE, BC ==
[2024-05-05 17:37] LABS: BASO % 0.4 % (0.0-1.0); EOS # 0.1 10^3/uL (0.0-0.5); EOS % 0.9 % (0.0-3.0); HEMATOCRIT 41.7 % (42.0-52.0); HEMOGLOBIN 13.9 g/dl (13.5-17.5); LYMPH # 1.9 10^3/uL (1.5-5.0); LYMPH % 23.1 % (24.0-44.0); MEAN CORPUSCULAR HEMOGLOBIN 32.6 pg (27.0-33.0); MEAN CORPUSCULAR HGB CONC 33.3 g/dl (32.0-36.5); MEAN CORPUSCULAR VOLUME 97.7 fl (80.0-96.0); MONO % 12.2 % (2.0-8.0); NEUTROPHILS # 5.1 10^3/uL (1.5-8.5); PLATELET COUNT, AUTOMATED 211 10^3/uL (150-450); RED BLOOD COUNT 4.27 10^6/uL (4.30-6.10); WHITE BLOOD COUNT 8.1 10^3/uL (4.0-10.0)
[2024-05-05 17:40] LABS: FREE T4 1.18 NG/DL (0.89-1.76); THYROID STIMULATING HORMONE 1.832 uIU/ML (0.55-4.78)
[2024-05-05 17:41] LABS: ALBUMIN 3.6 G/DL (3.2-5.2); BILIRUBIN,TOTAL 1.3 MG/DL (0.3-1.2); CALCIUM LEVEL 9.7 MG/DL (8.3-10.6); CREATININE FOR GFR 1.62 MG/DL (0.70-1.30); MAGNESIUM LEVEL 1.9 MG/DL (1.8-2.4); POTASSIUM SERUM 4.5 MMOL/L (3.5-5.1); TOTAL PROTEIN 6.4 G/DL (5.7-8.2)
== END ==
LOC: M SFHCCLAY 10:49
PROVIDERS: ATTEND Family Medicine
DX: I13.0 Hypertensive heart and chronic kidney disease with heart failure and stage 1 through stage 4 chronic kidney disease, or unspecified chronic kidney disease (principal); E03.9 Hypothyroidism, unspecified; K21.9 Gastro-esophageal reflux disease without esophagitis; I48.0 Paroxysmal atrial fibrillation

== ENCOUNTER → 2024-06-15 | Outpatient (REF) | payer MEDICARE, BC ==
[2024-06-15 19:11] LABS: BASO % 0.4 % (0.0-1.0); EOS # 0.2 10^3/uL (0.0-0.5); HEMATOCRIT 41.4 % (42.0-52.0); HEMOGLOBIN 13.9 g/dl (13.5-17.5); LYMPH # 1.7 10^3/uL (1.5-5.0); LYMPH % 22.5 % (24.0-44.0); MEAN CORPUSCULAR HEMOGLOBIN 33.2 pg (27.0-33.0); MEAN CORPUSCULAR HGB CONC 33.6 g/dl (32.0-36.5); MEAN CORPUSCULAR VOLUME 98.8 fl (80.0-96.0); MONO # 1.1 10^3/uL (0.0-0.8); MONO % 14.9 % (2.0-8.0); NEUTROPHILS # 4.5 10^3/uL (1.5-8.5); NEUTROPHILS % 59.8 % (36.0-66.0); PLATELET COUNT, AUTOMATED 197 10^3/uL (150-450); RED BLOOD COUNT 4.19 10^6/uL (4.30-6.10); WHITE BLOOD COUNT 7.6 10^3/uL (4.0-10.0)
[2024-06-15 19:23] LABS: ALBUMIN 3.5 G/DL (3.2-5.2); CALCIUM LEVEL 9.4 MG/DL (8.3-10.6); CREATININE FOR GFR 1.48 MG/DL (0.70-1.30); GLOMERULAR FILTRATION RATE 47.8 (>35); POTASSIUM SERUM 5.1 MMOL/L (3.5-5.1)
== END ==
LOC: M LABDRAWC 16:45
PROVIDERS: ATTEND Internal Medicine Cardiovascular Disease
DX: I50.22 Chronic systolic (congestive) heart failure (principal); I48.0 Paroxysmal atrial fibrillation; I11.0 Hypertensive heart disease with heart failure; I35.1 Nonrheumatic aortic (valve) insufficiency

== ENCOUNTER → 2024-08-19 | Outpatient (REF) | payer MEDICARE, BC ==
[2024-08-19 17:46] LABS: CALCIUM LEVEL 9.5 MG/DL (8.3-10.6); CREATININE FOR GFR 1.59 MG/DL (0.70-1.30); POTASSIUM SERUM 4.4 MMOL/L (3.5-5.1)
== END ==
LOC: M SFHCCLAY 10:43
PROVIDERS: ATTEND Family Medicine
DX: N18.31 Chronic kidney disease, stage 3a (principal)

== ENCOUNTER → 2024-10-04 | Outpatient (REF) | payer MEDICARE, BC ==
[2024-10-04 18:16] LABS: HEMATOCRIT 41.4 % (42.0-52.0); HEMOGLOBIN 13.8 g/dl (13.5-17.5); MEAN CORPUSCULAR HEMOGLOBIN 32.7 pg (27.0-33.0); MEAN CORPUSCULAR HGB CONC 33.3 g/dl (32.0-36.5); MEAN CORPUSCULAR VOLUME 98.1 fl (80.0-96.0); PLATELET COUNT, AUTOMATED 210 10^3/uL (150-450); RED BLOOD COUNT 4.22 10^6/uL (4.30-6.10); WHITE BLOOD COUNT 8.4 10^3/uL (4.0-10.0)
[2024-10-04 18:49] LABS: ALBUMIN 3.3 G/DL (3.2-5.2); CALCIUM LEVEL 9.4 MG/DL (8.3-10.6); CREATININE FOR GFR 1.3 MG/DL (0.70-1.30); GLOMERULAR FILTRATION RATE 55.5 (>35); POTASSIUM SERUM 4.8 MMOL/L (3.5-5.1); TOTAL PROTEIN 6.5 G/DL (5.7-8.2)
== END ==
LOC: M SFHCCLAY 13:33
PROVIDERS: ATTEND Family Medicine
DX: I11.9 Hypertensive heart disease without heart failure (principal)

== ENCOUNTER 2024-10-17 08:51 | Day surgery (SDC) | payer MEDICARE, BC ==
[~2024-10-17] VITALS: Ht 182.9 cm; Wt 71.5 kg
[2024-10-17] MEDS ORDERED: LR 1,000 ML IV SCH ×2 (09:05→11:15)
[2024-10-17] MEDS ORDERED: fentaNYL 100 MCG/2 ML INJECTION As Ordered ONE (09:44)
[2024-10-17] MEDS ORDERED: SUGAMMADEX SODIUM 500 MG/5 ML VIAL (BRIDION) As Ordered ONE (09:45)
[2024-10-17] MEDS ORDERED: ROCURONIUM BROMIDE 50MG/5ML VIAL As Ordered ONE (09:46)
[2024-10-17] MEDS ORDERED: propofoL 200 MG/20 ML VIAL As Ordered ONE (09:46)
[2024-10-17] MEDS ORDERED: ONDANSETRON 4MG 2ML VIAL As Ordered ONE (09:46)
[2024-10-17] MEDS ORDERED: LIDOCAINE 2% 100MG/5ML SDV (FOR ANES.) As Ordered ONE (09:46)
[2024-10-17] MEDS ORDERED: ACETAMINOPHEN 1000MG/100ML IV BAG As Ordered ONE (09:47)
[2024-10-17] MEDS ORDERED: ETOMIDATE INJ 20MG/10ML VIAL As Ordered ONE (09:49)
[2024-10-17] MEDS ORDERED: dexmedeTOMIDine (4MCG/ML)200MCG/50ML BTL (PRECEDEX) As Ordered ONE (10:03)
[2024-10-17] MEDS ORDERED: VASOPRESSIN INJ 20UNITS/ML 1ML VIAL As Ordered ONE (10:40)
[2024-10-17] MEDS: OXYMETAZOLINE 0.05% NASAL SPRAY (AFRIN) As Ordered ONE (10:57)
[2024-10-17] MEDS: METHYLENE BLUE 0.5% (5MG/ML) 10 ML AMP (PROVAYBLUE) As Ordered ONE (10:58)
[2024-10-17] MEDS: LIDOCAINE W/EPINEPHRINE 1% 20ML VIAL As Ordered ONE (11:00)
[2024-10-17] MEDS ORDERED: ONDANSETRON 4MG 2ML VIAL IV PRN (11:15)
[2024-10-17] MEDS ORDERED: oxyCODONE 5MG TAB PO PRN (11:15)
[2024-10-17] MEDS ORDERED: fentaNYL 100 MCG/2 ML INJECTION IV PRN (11:15)
[2024-10-17] MEDS ORDERED: HYDROMORPHONE HCL 0.5 MG/ 0.5 ML SYRINGE IV PRN (11:15)
[2024-10-17] MEDS: CETACAINE SPRAY 5GM As Ordered ONE (11:24)
[2024-10-17 12:29] VITALS: BP 111/58; TEMP 97.4; O2SAT 98
== END 2024-10-17 12:34 | disposition home or self-care (01) ==
LOC: M SDC 08:51
PROVIDERS: ATTEND Otolaryngology
DX: J38.7 Other diseases of larynx (principal); R09.A2 Foreign body sensation, throat; I48.91 Unspecified atrial fibrillation; I25.10 Atherosclerotic heart disease of native coronary artery without angina pectoris; I50.9 Heart failure, unspecified; I11.0 Hypertensive heart disease with heart failure; Z79.899 Other long term (current) drug therapy
CPT/HCPCS: 31536; 88305; J0131; J1100; J2405; J2598; J3010; Q9968

== ENCOUNTER → 2025-01-19 | Outpatient (REF) | payer MEDICARE, BC ==
[2025-01-19 18:23] LABS: HEMATOCRIT 40.4 % (42.0-52.0); HEMOGLOBIN 13.1 g/dl (13.5-17.5); MEAN CORPUSCULAR HGB CONC 32.4 g/dl (32.0-36.5); MEAN CORPUSCULAR VOLUME 95.5 fl (80.0-96.0); PLATELET COUNT, AUTOMATED 220 10^3/uL (150-450); RED BLOOD COUNT 4.23 10^6/uL (4.30-6.10); WHITE BLOOD COUNT 8.2 10^3/uL (4.0-10.0)
[2025-01-19 18:47] LABS: ALBUMIN 3.2 G/DL (3.2-5.2); ALKALINE PHOSPHATASE 113 U/L (40-129); ALT/SGPT 19 U/L (7.0-40); AST/SGOT 25 U/L (<34); BILIRUBIN,TOTAL 0.7 MG/DL (0.3-1.2); BLOOD UREA NITROGEN 25 MG/DL (9-23); CALCIUM LEVEL 8.5 MG/DL (8.3-10.6); CARBON DIOXIDE LEVEL 26 MMOL/L (20-31); CHLORIDE LEVEL 105 MMOL/L (98-107); CHOLESTEROL LEVEL 100 MG/DL (<200); CHOLESTEROL RISK RATIO 2.46 (<5); CREATININE FOR GFR 1.15 MG/DL (0.70-1.30); GLOMERULAR FILTRATION RATE > 60.0 (>35); GLUCOSE, FASTING 118 MG/DL (74-106); HDL CHOLESTEROL 40.5 MG/DL (>40); LDL CHOLESTEROL 47.5 MG/DL (<100); NON-HDL-C 59.5 MG/DL; POTASSIUM SERUM 4.4 MMOL/L (3.5-5.1); SODIUM LEVEL 140 MMOL/L (136-145); TOTAL PROTEIN 6.4 G/DL (5.7-8.2); TRIGLYCERIDES LEVEL 60 MG/DL (<150)
[2025-01-19 18:48] LABS: FREE T4 1.31 NG/DL (0.89-1.76)
[2025-01-19 18:49] LABS: THYROID STIMULATING HORMONE 2.814 uIU/ML (0.55-4.78)
== END ==
LOC: M SFHCCLAY 13:41
PROVIDERS: ATTEND Family Medicine
DX: Z00.00 Encounter for general adult medical examination without abnormal findings (principal); I11.9 Hypertensive heart disease without heart failure; E03.9 Hypothyroidism, unspecified; I25.10 Atherosclerotic heart disease of native coronary artery without angina pectoris

== ENCOUNTER → 2025-02-02 | Outpatient (CLI) | payer MEDICARE, BC | LOC: M EKG 11:02 | PROVIDERS: ATTEND Registered Nurse | DX: I49.3 Ventricular premature depolarization (principal) ==

== ENCOUNTER → 2025-05-24 | Outpatient (REF) | payer MEDICARE, OTHER ==
[2025-05-24 13:09] LABS: BASO # 0.1 10^3/uL (0.0-0.2); BASO % 0.6 % (0.0-1.0); EOS # 0.3 10^3/uL (0.0-0.5); EOS % 3.4 % (0.0-3.0); LYMPH # 1.9 10^3/uL (1.5-5.0); LYMPH % 24.4 % (24.0-44.0); MONO # 1.1 10^3/uL (0.0-0.8); MONO % 13.6 % (2.0-8.0); NEUTROPHILS # 4.4 10^3/uL (1.5-8.5); NEUTROPHILS % 57.6 % (36.0-66.0); PLATELET COUNT, AUTOMATED 222 10^3/uL (150-450)
[2025-05-24 13:13] LABS: ALT/SGPT 19.0 U/L (7.0-40); AST/SGOT 31.0 U/L (<34); CALCIUM LEVEL 8.9 MG/DL (8.3-10.6); CARBON DIOXIDE LEVEL 28.0 MMOL/L (20-31); CHLORIDE LEVEL 103.0 MMOL/L (98-107); CREATININE FOR GFR 1.33 MG/DL (0.70-1.30); GLOMERULAR FILTRATION RATE 51.1 (>35); POTASSIUM SERUM 4.4 MMOL/L (3.5-5.1); SODIUM LEVEL 141.0 MMOL/L (136-145)
== END ==
LOC: M LABDRAWC 12:18
PROVIDERS: ATTEND Registered Nurse
DX: I25.10 Atherosclerotic heart disease of native coronary artery without angina pectoris (principal)